=== PATIENT | female | born 1980 | race Caucasian/White ===

== ENCOUNTER 2023-12-01 16:41 | Emergency (ER) | payer OTHER, SELFPAY ==
--- NOTE | ~2023-12-01 | XR_ITS ---
EXAMINATION: XR LUMBOSACRAL SPINE CLINICAL INFORMATION: Fall with pain COMPARISON: None available. TECHNIQUE: Three views of the lumbosacral spine. FINDINGS: Degenerative changes are present spine from L1-L2 through S1. There is fixation with interbody devices at L3-L4 and L4-L5. 2 mild scoliosis convex to the right. No acute exercise are seen with certainty. XR/XR lumbar spine 2-3V IMPRESSION: Degenerative changes and postoperative changes as described above. No acute finding.
--- NOTE | ~2023-12-01 | CT_ITS ---
EXAMINATION: CT ABDOMEN AND PELVIS WITHOUT CONTRAST CLINICAL INFORMATION: Abdominal and back pain COMPARISON: None available. TECHNIQUE: Multidetector volumetric imaging was performed from the superior aspect of the liver through the pubic symphysis. Sagittal and coronal reformatted images were obtained on the technologist's workstation. This CT examination was performed using dose optimization techniques as appropriate, variously including the following: *Automated exposure control *Adjustment of mA and/or kV according to patient size (this includes techniques or standardized protocols for targeted exams where dose is matched to indication/reason for exam; i.e. extremities or head) *Use of iterative reconstruction technique DLP: 370 mGy-cm FINDINGS: LUNG BASES: The visualized lung bases are unremarkable. LIVER, GALLBLADDER, AND BILIARY TREE: The liver is normal in size, shape, and attenuation. No focal hepatic lesion or biliary ductal dilatation is present. The gallbladder is unremarkable with no evidence of radiopaque gallstones, gallbladder wall thickening, or obvious pericholecystic inflammatory changes. PANCREAS: Unremarkable. SPLEEN: Unremarkable. ADRENAL GLANDS: Unremarkable. KIDNEYS AND URETERS: The kidneys are normal in size, shape, and attenuation. There is a 2 mm nonobstructing calculus seen in the mid left kidney. No other calculi are seen. Mild fullness in both renal collecting systems without as well as the proximal ureters but there is no gross hydronephrosis or hydroureter seen. No perinephric stranding. A benign right-sided 0.8 cm Bosniak class I renal cyst is noted which requires no additional imaging or follow up. No solid renal masses are seen. BLADDER: Unremarkable. GASTROINTESTINAL TRACT: The small and large bowel are unremarkable. The appendix is unremarkable. ABDOMINAL WALL: No significant hernia is appreciated. Some surgical clips are present around the left rectus muscle. LYMPH NODES: No retroperitoneal lymphadenopathy but evaluation is limited because of lack of oral and IV contrast VASCULAR: Unremarkable. PELVIC VISCERA: The uterus and adnexa are unremarkable. OSSEOUS STRUCTURES: Degenerative changes are present in the spine with biconvex thoracolumbar scoliosis. There is fusion with interbody devices at L4-L5 and L5-S1. No bony destructive lesions or acute fractures are seen. CT/CT abdomen pelvis wo IV con IMPRESSION: 1. A cause for the patient's abdominal and back pain has not been found. 2. Incidental note made of a 2 mm nonobstructing left renal calculus, degenerative changes in the spine with biconvex scoliosis and fusion L4-S1. Fleischner guidelines were followed.
[2023-12-01 16:47] VITALS: BP 152/105; PULSE 97; RESP 20; TEMP 37.2; O2SAT 98; BMI 22.9
--- NOTE | 2023-12-01 16:55 | ED.FALL ---
HPI - Fall General Chief Complaint: Fall Stated Complaint: ?Kidney infection Time Seen by Provider: 12/01/23 19:28 Source: patient Mode of arrival: ambulatory Limitations: no limitations History of Present Illness ED Provider: Rosalinda Renee HPI Narrative: This is a 43-year-old female with history of lumbar fusion, chronic back pain, spinal stimulator who presents to the ER with multiple complaints. Patient reports on Sunday she had a mechanical fall landing on her buttocks. No head strike or LOC. She reports increased lower back pain since then. She reports since yesterday she has had pain which radiates to her left abdomen with dysuria. She has also had some nausea and vomit. her last menstrual cycle was 1 week ago. she does not have any concern for . she denies any numbness in the groin. Denies any bowel or bladder incontinence. No diarrhea or constipation. No urinary retention. No radiation of pain into the legs. No numbness or tingling in the legs. Patient arrived ambulatory. Denies history of IVDA, no weight loss/night sweats. Related Data Previous Rx's ?Medication ?Instructions ?Recorded ibuprofen 600 mg tablet 600 mg PO Q6H PRN pain #30 tabs 12/01/23 levofloxacin 750 mg tablet 750 mg PO DAILY 7 days #7 tabs 12/01/23 lidocaine 5 % topical patch 1 patch topical DAILY #15 ea 12/01/23 (Lidoderm) ondansetron 4 mg disintegrating 4 mg PO Q6H PRN nausea and 12/01/23 tablet vomiting #10 tabs phenazopyridine 200 mg tablet 200 mg PO TID PRN pain 6 doses #6 12/01/23 (Pyridium) tabs Allergies Allergy/AdvReac Type Severity Reaction Status Date / Time No Known Allergies Allergy Verified 12/01/23 16:50 [No Known Allergies*] Review of Systems Review of Systems: Yes all other systems are reviewed and are negative Constitutional: Constitutional: Reports no additional constitutional complaints, Denies body ache(s), Denies chills, Denies fever(s), Denies headache(s), Denies night sweats, Denies weakness and Denies weight loss Eyes: Eyes: Reports no additional eye complaints and Denies change in vision ENT: Reports system reviewed and no additional complaints, except as documented, Denies dizziness, Denies headache(s), Denies nasal congestion, Denies nasal discharge and Denies neck pain Cardiovascular: Cardiovascular: Reports no additional cardiovascular complaints, Denies chest pain, Denies leg edema and Denies dyspnea Respiratory: Respiratory: Reports no additional respiratory complaints, Denies cough and Denies dyspnea Gastrointestinal: Gastrointestinal: Reports no additional gastrointestinal complaints, Reports abdominal pain, Denies diarrhea, Reports nausea and Reports vomiting Genitourinary: Genitourinary: Reports no additional female genitourinary complaints, Denies hematuria, Reports dysuria, Denies flank pain, Denies urinary incontinence, Denies urinary hesitancy and Denies urinary urgency Musculoskeletal: Musculoskeletal: Reports no additional musculoskeletal complaints, Reports back pain, Denies arthralgias, Denies joint swelling, Denies neck pain, Denies numbness and Denies tingling Integumentary/Breasts: Skin/Breast: Reports system reviewed and no additional complaints, except as docu and Denies rash Neurologic: Reports system reviewed and no additional complaints, except as documented, Denies Abnormal speech present, Denies dizziness, Denies headache(s), Denies numbness, Denies tingling and Denies weakness [facility] Past Medical History Attestation statement: The following information was validated with the patient. Source: old records reviewed and nursing notes reviewed Social History Social History Advance Directives: No Advance Directives Information Provided: No Do you have a plan to hurt others: No Plan Physical Exam Vital Signs: Vital Signs: Last Vital Signs Temp 98.5 F 12/01/23 22:24 Pulse 82 12/01/23 22:24 Resp 16 12/01/23 22:24 BP 132/100 H 12/01/23 22:24 Pulse Ox 98 12/01/23 22:24 O2 Del Method Room Air 12/01/23 22:24 BMI result Body Mass Index 22.9 Const: General: cooperative, healthy appearing, comfortable and no acute distress Orientation/consciousness: patient oriented x3 Limitations: no limitations HEENT: Head: Yes normal to inspection, No Day's sign and No raccoon eyes Ears: hearing grossly normal bilaterally and TM's normal bilaterally General nose exam: Normal external nose present Face and sinus: Yes normal facial exam Mouth: Normal oral and palatal mucosa present Throat: Yes posterior oropharynx normal Eyes: General: appearance normal, both eyes and all related structures Pupils: Equal, round and reactive pupils present Neck: Neck: Yes normal visual inspection, Yes full ROM, Yes no lymphadenopathy and Yes no meningeal signs Chest: Chest palpation & inspection: normal inspection of the chest Resp: Effort & Inspection: normal respiratory effort Auscultation: clear to auscultation bilaterally Cardio: Rate: regular rate Rhythm: regular rhythm Peripheral pulses: Peripheral pulses 2+ throughout GI: Inspection: Yes normal to inspection Palpation (GI): Soft to palpation, Tenderness to palpation present (GI) in the LLQ; with no rebound tenderness and no guarding Auscultation: normal bowel sounds : General: Yes no CVA tenderness Back/Spine/Pelvis: Other: TTP to bilateral lumbar/thoracic soft tissue with no midline tenderness, Step-offs or deformities. Pain is worsened with flexion extension of the lumbar spine. Back: no CVA tenderness Thoracic/Lumbar Spine: thoracic and lumbar spine normal to inspection Skin: General skin exam: no rashes or lesions noted Neuro: General: patient oriented x3, moves all extremities, no meningeal signs, no focal motor deficits and normal sensation to monofilament Cranial nerves: Yes CN's II-XII intact bilaterally, Yes Equal, round and reactive pupils present, Yes Bilaterally intact EOM present, Yes Nystagmus not present, Yes Normal facial strength present and Yes Midline tongue present Cognition (Neuro): normal cognition Speech: No Abnormal speech present Gait exam (Neuro): Normal gait present Motor exam (neuro): 5/5 motor strength present throughout Sensory Exam: Normal double simultaneous stimulation for sensation Deep tendon reflexes (DTR's): Right patellar reflex intensity grade: 2+ and Left patellar reflex intensity grade: 2+ Extrem: General: Yes normal to inspection Course Course Course Narrative: This is a rapid medical exam. Deferred additional HPI, ROS, PE to primary provider. 43 yo female with history of chronic pain had mechanicall fall Sunday hitting lower back now with severe lower back pain, vomiting, and dysuria. Will obtain labs, UA, x-ray AJITHS -Melina Renee APRN Reevaluation(s) Reevaluation #1: 2030-Labs are normal. UA c/w with UTI. Antibiotic ordered. CT pending. Sign out to [employer] pending CT imaging. Reevaluation #2: Patient received in sign-out at change of shift pending CT scan which does not show any acute findings. Patient be treated clinically for pyelonephritis. Time: 22:45 Medications Administered Discontinued Medications Generic Name Dose Route Start Last Admin Trade Name Rigo PRN Reason Stop Dose Admin Ketorolac Tromethamine 30 mg 12/01/23 20:12 12/01/23 20:20 Ketorolac Tromethamine 30 Mg/Ml Vial IM 12/01/23 20:13 30 mg ONCE ONE Administration Levofloxacin 750 mg 12/01/23 20:32 12/01/23 20:39 Levofloxacin 750 Mg Tablet PO 12/01/23 20:33 750 mg ONCE ONE Administration Medical Decision Making Medical Decision Making [facility] Narrative: This is a 43-year-old female with history of lumbar fusion, chronic back pain, spinal stimulator who presents to the ER with multiple complaints. Patient reports on Sunday she had a mechanical fall landing on her buttocks. No head strike or LOC. She reports increased lower back pain since then. She reports since yesterday she has had pain which radiates to her left abdomen with dysuria. She has also had some nausea and vomit. her last menstrual cycle was 1 week ago. she does not have any concern for . she denies any numbness in the groin. Denies any bowel or bladder incontinence. No diarrhea or constipation. No urinary retention. No radiation of pain into the legs. No numbness or tingling in the legs. Patient arrived ambulatory. On exam patient has TTP to bilateral lumbar/thoracic soft tissue as well as her LLQ with no rebound or guarding. No midline lumbar tenderness/step offs or deformities. Normal neuro exam with no deficits or red flag symptoms. Will obtain labs, UA, urine preg, CT X-rays reviewed from triage with no acute finding will provide analgesia Differential Diagnosis Differential Diagnoses: The differential diagnosis associated with the presentation includes lumbar strain vs contusion pyelo, renal colic, divert low suspicion for AAA, ACS, fracture, cord compression/caude equina, epidural abscess/hematoma, malignancy Admission/Observation Consideration of admission/observation: Escalation of care including admission/observation considered see discussion in course Lab Data [facility] Lab Attestation statement: I reviewed the patient's lab results. 12/01/23 17:30 12/01/23 17:30 Labs: Lab Results 12/01/23 12/01/23 Range/Units 17:30 20:13 WBC 10.8 (4.8-10.8) X10*3/uL RBC 4.55 (4.20-5.50) X10*6/uL Hgb 12.9 (12.0-16.0) g/dl Hct 38.8 (37.0-47.0) % MCV 85.3 (80.0-98.0) fL MCH 28.4 (27.0-33.0) pg MCHC 33.2 (31.0-35.0) g/dl RDW 12.8 (11.0-16.0) % Plt Count 303 (160-400) X10*3/uL MPV 9.2 L (9.4-12.3) fL Immature Gran % (Auto) 0.3 (0.0-0.4) % Neut % (Auto) 77.0 H (45-73) % Lymph % (Auto) 14.1 L (20-40) % [place] % (Auto) 6.7 (2-11) % Eos % (Auto) 1.2 (0-4) % Baso % (Auto) 0.7 (0-2) % Lymph # (Auto) 1.5 (1.2-4.9) X10*3/uL [place] # (Auto) 0.7 (0.1-1.2) X10*3/uL Eos # (Auto) 0.1 (0.0-0.4) X10*3/uL Baso # (Auto) 0.1 (0.0-0.2) X10*3/uL Abs Immat Gran (auto) 0.03 (0.00-0.03) X10*3/uL Absolute Neuts (auto) 8.3 (2.0-8.3) x10*3/uL Absolute Nucleated RBC 0.000 (0.0-0.012) X10*3/uL Nucleated RBC % (auto) 0.0 (0.0-0.2) /100WBC Sodium 137 (135-145) mmol/L Potassium 3.6 (3.3-5.1) mmol/L Chloride 99 (96-108) mmol/L Carbon Dioxide 25 (22-29) mmol/L Anion Gap 17 (12-20) BUN 7 L (9-16) mg/dL Creatinine 0.77 (0.5-1.4) mg/dL Estim Creat Clear Calc 73.7 Estimated GFR > 60 Random Glucose 67 (60-115) mg/dL Calcium 9.6 (8.4-10.2) mg/dL Total Bilirubin 0.5 (0.0-1.0) mg/dL AST 26 (5-31) U/L ALT 24 (0-31) U/L Alkaline Phosphatase 83 (39-117) U/L Total Protein 8.4 H (6.5-8.0) g/dL Albumin 4.6 (3.5-5.0) g/dL Urine Color Yellow Urine Appearance Hazy Urine pH 7.0 (5.0-9.0) Ur Specific [place] 1.015 (1.005-1.025) Urine Protein 30 (1+) H (Neg-Trace) mg/dL Urine Glucose (UA) Negative (Negative) mg/dL Urine Ketones Negative (Negative) mg/dL Urine Blood Moderate (2+) H (Negative) Urine Nitrite Positive H (Negative) Ur Leukocyte Esterase Moderate (2+) H (Negative) Urine RBC >20 H (0-2) /HPF Urine WBC >50 H (0-5) /HPF Ur Squamous Epith Cells 0-2 (0-2) /HPF Urine Bacteria 3+ (None Seen) Hyaline Casts 0-2 (0-2) /LPF Urine Test NEGATIVE (NEGATIVE) Independent Interpretation I performed an independent interpretation of an: Plain X-Ray and CT Scan Interpretation: I independently viewed the x-ray and agree with the radiology report Radiology Impression Discussion of test interpretation with radiology: I have reviewed the radiologist's reading. Radiologist Impression: Launch?Image [place] [id number] XRay Report Signed Patient: Ellen Flores MR#: [id number] : 1980 Acct:[id number] Age/Sex: 43 / F ADM Date: 12/01/23 Loc: .ED Attending Dr: Ordering Physician: Rosalinda Stover NP Date of Service: 12/01/23 Procedure(s): XR lumbar spine 2-3V Accession Number(s): [id number] cc: Rosina Medina LOADER HELPER; Rosalinda Stover NP~ EXAMINATION: XR LUMBOSACRAL SPINE CLINICAL INFORMATION: Fall with pain COMPARISON: None available. TECHNIQUE: Three views of the lumbosacral spine. FINDINGS: Degenerative changes are present spine from L1-L2 through S1. There is fixation with interbody devices at L3-L4 and L4-L5. 2 mild scoliosis convex to the right. No acute exercise are seen with certainty. XR/XR lumbar spine 2-3V IMPRESSION: Degenerative changes and postoperative changes as described above. No acute finding. Prescription Management I considered prescription management with: Pain Medication Discharge Plan Discharge Clinical Impression: Pyelonephritis Patient Disposition: Home, Self-Care Instructions: Kidney Infection (ED) Additional Instructions: Take your medication as prescribed. Take it with food. Return for worsening symptoms Increase fluids at home. Prescriptions: New levofloxacin 750 mg tablet 750 mg PO DAILY 7 Days Qty: 7 0RF ondansetron 4 mg tablet,disintegrating 4 mg PO Q6H PRN (Reason: nausea and vomiting) Qty: 10 0RF lidocaine [Lidoderm] 5 % adhesive patch,medicated 1 patch topical DAILY Qty: 15 0RF Rx Instructions: leave on most painful area for up to 12 hrs ibuprofen 600 mg tablet 600 mg PO Q6H PRN (Reason: pain) Qty: 30 0RF phenazopyridine [Pyridium] 200 mg tablet 200 mg PO TID PRN (Reason: pain) Qty: 6 0RF Referrals: Rosina Medina, SANIYA [Primary Care Provider] - 1 week Stand Alone Forms: Work/School Release Print Language: Japanese
[2023-12-01 18:11] LABS: MANUAL DIFF FLAG NO
[2023-12-01 18:12] LABS: Basophils Absolute Auto 0.1 X10*3/uL (0.0-0.2); Basophils Percent Auto 0.7 % (0-2); Eosinophils Absolute Auto 0.1 X10*3/uL (0.0-0.4); Eosinophils Percent Auto 1.2 % (0-4); Hematocrit 38.8 % (37.0-47.0); Hemoglobin 12.9 g/dl (12.0-16.0); Imm Gran Abs Auto 0.03 X10*3/uL (0.00-0.03); Imm Gran Pct Auto 0.3 % (0.0-0.4); Lymphocytes Absolute Auto 1.5 X10*3/uL (1.2-4.9); Lymphocytes Percent Auto 14.1 % (20-40); Mean Corpuscular HGB Conc 33.2 g/dl (31.0-35.0); Mean Corpuscular Hemoglobin 28.4 pg (27.0-33.0); Mean Corpuscular Volume 85.3 fL (80.0-98.0); Mean Platelet Volume 9.2 fL (9.4-12.3); Monocytes Absolute Auto 0.7 X10*3/uL (0.1-1.2); Monocytes Percent Auto 6.7 % (2-11); Neutrophils Absolute Auto 8.3 x10*3/uL (2.0-8.3); Platelet Count 303 X10*3/uL (160-400); Red Blood Count 4.55 X10*6/uL (4.20-5.50); Red Cell Distribution Width 12.8 % (11.0-16.0); White Blood Count 10.8 X10*3/uL (4.8-10.8)
[2023-12-01 18:31] LABS: Alanine Aminotransferase 24 U/L (0-31); Albumin Level 4.6 g/dL (3.5-5.0); Alkaline Phosphatase 83 U/L (39-117); Anion Gap 17 (12-20); Aspartate Amino Transferase 26 U/L (5-31); Bilirubin Total 0.5 mg/dL (0.0-1.0); Blood Urea Nitrogen 7 mg/dL (9-16); Calcium 9.6 mg/dL (8.4-10.2); Carbon Dioxide 25 mmol/L (22-29); Chloride 99 mmol/L (96-108); Creatinine Clr Calc Pharmacy 73.7; Estimated Glomerular Filt Rate > 60; Glucose Random 67 mg/dL (60-115); Potassium 3.6 mmol/L (3.3-5.1); Sodium 137 mmol/L (135-145); Total Protein 8.4 g/dL (6.5-8.0)
[2023-12-01 20:12] VITALS: BP 129/87; PULSE 73; RESP 18; TEMP 37; O2SAT 100
[2023-12-01] MEDS: Ketorolac Tromethamine 30 MG/ML VIAL IM (20:20)
[2023-12-01 20:23] LABS: Appearance Urine Hazy; Color Urine Yellow; Glucose Urine UA Negative (Negative); Leukocyte Esterase Urine Moderate (2+) (Negative); Nitrite Urine Positive (Negative); Specific Gravity - Urine 1.015 (1.005-1.025); UMIC TRIGGER UACC YES; Urine Blood Moderate (2+) (Negative); Urine Ketones Negative (Negative); Urine Protein 30 (1+) mg/dL (Neg-Trace)
[2023-12-01 20:24] LABS: UPreg QC Valid YES; Urine Pregnancy NEGATIVE (NEGATIVE)
[2023-12-01 20:27] LABS: Bacteria Urine 3+ (None Seen); Hyaline Casts Urine 0-2 /LPF (0-2); RBC Urine >20 /HPF (0-2); Squamous Epithelial Cell Urine 0-2 /HPF (0-2); UACC Culture Trigger YES; WBC Urine >50 /HPF (0-5)
[2023-12-01] MEDS: levoFLOXacin 750 MG TABLET PO (20:39)
[2023-12-01 22:24] VITALS: BP 132/100; PULSE 82; RESP 16; TEMP 36.9; O2SAT 98
[2023-12-01] MEDS: Ondansetron ODT 4 MG TAB.RAPDIS TRANSLINGU (23:31)
[2023-12-01 23:33] VITALS: BP 132/100; PULSE 82; RESP 16; TEMP 36.9; O2SAT 98
== END 2023-12-01 23:34 | disposition home or self-care (01) ==
PROVIDERS: Nurse Practitioner Family; Emergency Provider Internal Medicine; PCP Nurse Practitioner Family
DX: N12 Tubulo-interstitial nephritis, not specified as acute or chronic (principal); M54.50 Low back pain, unspecified; R30.0 Dysuria; R10.32 Left lower quadrant pain; R11.2 Nausea with vomiting, unspecified; Z91.81 History of falling
CPT/HCPCS: 36415; 72100; 74176; 80053; 81001; 81025; 85025; 87086; 87088; 87186; 96372; 99283; 99284; J1885

== ENCOUNTER 2024-06-30 18:26 | Emergency (ER) | payer OTHER, SELFPAY ==
--- NOTE | ~2024-06-30 | XR_ITS ---
EXAMINATION: XR LUMBOSACRAL SPINE CLINICAL INFORMATION: lower back pain COMPARISON: Lumbar spine December 01, 2023 TECHNIQUE: Two views of the lumbosacral spine. FINDINGS: Lumbar disc cages at L4-L5 and L5-S1. Surgical clips anterior to lower lumbar spine. Degenerative disc height narrowing L3-L4. No acute fracture. No focal bone lesion. Mild degenerative changes inferior sacroiliac joints bilaterally. XR/XR lumbar spine 2-3V IMPRESSION: 1. No acute abnormality. 2. Lumbar disc cages at L4-L5 and L5-S1. 3. Degenerative disc height narrowing L3-L4. Electronically signed by: Jan Goodman MD 06/30/2024 09:57 PM EST RP
[2024-06-30 18:32] VITALS: BP 156/110; PULSE 114; RESP 16; TEMP 36.2; O2SAT 98; BMI 23.2
--- NOTE | 2024-06-30 18:41 | ED.BACK ---
HPI - Back Pain/Injury General Chief Complaint: Back Pain/Injury Stated Complaint: back pain Time Seen by Provider: 06/30/24 21:32 Source: patient Limitations: no limitations History of Present Illness ED Provider: Pamela angeles PA-C HPI Narrative: 43-year-old female with a history of chronic back pain presents with back pain x2 weeks. Patient states she lifted her grandson, then developed acute low back pain. The pain is currently radiating down her right lower extremity. Associated paresthesia. Denies weakness of lower extremity, urinary retention or bowel incontinence. Related Data Previous Rx's ?Medication ?Instructions ?Recorded ibuprofen 600 mg tablet 600 mg PO Q6H PRN pain #30 tabs 12/01/23 levofloxacin 750 mg tablet 750 mg PO DAILY 7 days #7 tabs 12/01/23 lidocaine 5 % topical patch 1 patch topical DAILY #15 ea 12/01/23 (Lidoderm) ondansetron 4 mg disintegrating 4 mg PO Q6H PRN nausea and 12/01/23 tablet vomiting #10 tabs phenazopyridine 200 mg tablet 200 mg PO TID PRN pain 6 doses #6 12/01/23 (Pyridium) tabs methocarbamol 750 mg tablet 750 mg PO TID PRN pain #14 tabs 06/30/24 methylprednisolone 4 mg tablets in 4 mg PO QAM #1 ea 06/30/24 a dose pack (Medrol (Italo)) Allergies Allergy/AdvReac Type Severity Reaction Status Date / Time No Known Allergies Allergy Verified 06/30/24 18:39 [No Known Allergies*] Review of Systems Review of Systems: Yes all other systems are reviewed and are negative Constitutional: Constitutional: Denies fatigue and Denies fever(s) Cardiovascular: Cardiovascular: Denies chest pain and Denies dyspnea Respiratory: Respiratory: Denies dyspnea Gastrointestinal: Gastrointestinal: Denies abdominal pain and Denies nausea Musculoskeletal: Musculoskeletal: Reports back pain, Denies muscle weakness, Denies numbness and Reports tingling Neurologic: Denies numbness and Reports tingling Endocrine: Endocrine: Denies fatigue PMF Past Medical History Attestation statement: The following information was validated with the patient. Social History Social History Smoked in Last 30 Days: No Use of substances other than those prescribed or required for medical reasons: No Advance Directives: No Advance Directives Information Provided: No Do you have a plan to hurt others: No Plan Patient : No Physical Exam Vital Signs: Vital Signs: Last Vital Signs Temp 97.2 F 06/30/24 18:32 Pulse 114 H 06/30/24 18:32 Resp 16 06/30/24 18:32 BP 156/110 H 06/30/24 18:32 Pulse Ox 98 06/30/24 18:32 O2 Del Method Room Air 06/30/24 18:32 BMI result Body Mass Index 23.2 Const: Other: Alert, appears older than stated age Orientation/consciousness: patient oriented x3 Resp: Other: Nonlabored respirations Cardio: Other: Normal peripheral perfusion Skin: Other: Warm dry no rash Neuro: General: patient oriented x3, gait normal, no focal motor deficits and CN's II-XI intact bilaterally Psych: Other: Cooperative Course Course Course Narrative: This is an RME done by [facility]: Additional HPI, ROS, PE not included below will be deferred to primary provider. 43 yo f presents w/ acute on chronic back pain worsening over the past few days. Reports interfeering w/ adls denies red flags sx. PE ambulatory into triage Medical Decision Making Medical Decision Making MDM Narrative: 43-year-old female with a history of chronic back pain presents with back pain x2 weeks. Patient states she lifted her grandson, then developed acute low back pain. The pain is currently radiating down her right lower extremity. Associated paresthesia. Denies weakness of lower extremity, urinary retention or bowel incontinence. Problem: Chronic back pain History: Per patient I have considered the following differential diagnoses: Lumbar strain, radiculopathy, sciatica, cauda equina Plan: Patient is having symptoms of sciatica without red flag signs symptoms concerning for cord compression. We will send with a steroid taper and a muscle relaxant. Imaging was ordered from triage, she have degenerative changes, no other acute process going on at this time. I have independently reviewed the following tests: X-ray lumbar spine: XR/XR lumbar spine 2-3V IMPRESSION: 1. No acute abnormality. 2. Lumbar disc cages at L4-L5 and L5-S1. 3. Degenerative disc height narrowing L3-L4. Discharge Plan Discharge Clinical Impression: Lumbar radiculopathy Patient Disposition: Home, Self-Care Instructions: Lumbar Radiculopathy (ED) Additional Instructions: Your discomfort is consistent with lumbar radiculopathy/sciatica. See home care instructions. Use the Medrol Dosepak, this is a steroid taper, take it in the morning. This is an anti-inflammatory. Use the methocarbamol, this is a muscle relaxant, as needed for pain. To know it may cause drowsiness, do not drive or operate machinery while taking the medication. During the day, in between the doses of the methocarbamol, you can concurrently take 600 mg of ibuprofen taken every 6 hours with food, along with [id number] Tylenol 1000 mg taken every 8 hours. These are the appropriate doses of ibuprofen and Tylenol for pain. Follow up with your primary care provider as needed. Prescriptions: New methocarbamol 750 mg tablet 750 mg PO TID PRN (Reason: pain) Qty: 14 0RF methylprednisolone [Medrol (Italo)] 4 mg tablets,dose pack 4 mg PO QAM Qty: 1 0RF Rx Instructions: Take per package instructions No Action levofloxacin 750 mg tablet 750 mg PO DAILY 7 Days Qty: 7 0RF ondansetron 4 mg tablet,disintegrating 4 mg PO Q6H PRN (Reason: nausea and vomiting) Qty: 10 0RF lidocaine [Lidoderm] 5 % adhesive patch,medicated 1 patch topical DAILY Qty: 15 0RF Rx Instructions: leave on most painful area for up to 12 hrs ibuprofen 600 mg tablet 600 mg PO Q6H PRN (Reason: pain) Qty: 30 0RF phenazopyridine [Pyridium] 200 mg tablet 200 mg PO TID PRN (Reason: pain) Qty: 6 0RF Print Language: Haitian
--- NOTE | 2024-06-30 19:57 | PC.NURSE ---
pt from home, a&ox4, respirations even and unlabored. pt reports she has had chronic back pain x3 years, pt reports today it has increased, radiating down bilateral legs and making it hard for her to walk. pt ambulatory out of wheelchair with cane into bed.
[2024-06-30] MEDS: methocarbamoL 750 MG TABLET PO (22:32)
[2024-06-30 22:35] VITALS: BP 128/102; PULSE 73; RESP 16; TEMP 36.3; O2SAT 99
[2024-06-30 22:36] VITALS: BP 128/102; PULSE 73; RESP 16; TEMP 36.3; O2SAT 99
== END 2024-06-30 22:51 | disposition home or self-care (01) ==
PROVIDERS: Emergency Provider Emergency Medicine; PCP Nurse Practitioner Family
DX: M54.16 Radiculopathy, lumbar region (principal)
CPT/HCPCS: 72100; 99283; 99284

== ENCOUNTER 2024-07-28 14:22 | Outpatient (REF) | payer OTHER, SELFPAY ==
[2024-07-28 14:52] LABS: Amphetamine Screen Urine Not Detected (Not Detect); Barbiturates, Urine Not Detected (Not Detect); Benzodiazepines Screen Urine Not Detected (Not Detect); Cannabinoid Screen Urine POSITIVE (Not Detect); Cocaine Screen Urine Not Detected (Not Detect); Fentanyl, urine Not Detected (Not Detect); Methadone Screen, Urine Positive (Not Detect); Opiate Screen Urine Not Detected (Not Detect); Phencyclidine Screen Urine Not Detected (Not Detect)
== END 2024-07-28 14:23 | disposition home or self-care (01) ==
LOC: HO.LNP 14:22
PROVIDERS: Visit Provider Psychiatry & Neurology Psychiatry
DX: F33.1 Major depressive disorder, recurrent, moderate (principal); F11.21 Opioid dependence, in remission; F41.1 Generalized anxiety disorder
CPT/HCPCS: 80307

== ENCOUNTER → 2024-08-06 11:00 | Outpatient (BNV) | payer OTHER, SELFPAY | PROVIDERS: Visit Provider Psychiatry & Neurology Psychiatry | DX: F33.1 Major depressive disorder, recurrent, moderate (principal); F11.20 Opioid dependence, uncomplicated; F41.1 Generalized anxiety disorder; F45.42 Pain disorder with related psychological factors | CPT/HCPCS: 90792 ==

== ENCOUNTER 2024-08-07 11:00 | Outpatient (RCR) | payer OTHER, SELFPAY ==
[2024-07-25 09:48] VITALS: BP 128/80; PULSE 72; TEMP 37.2
[2024-07-25 09:50] VITALS: BMI 21.4
--- NOTE | 2024-07-25 14:26 | PC.ADMIT ---
Patient is a 43 year old single female who self referred to [facility] d/t sxs of depression, sleep problems, and anxiety. Patient has a history of Opiate addiction. She reports last use was 8 years ago. She is currently on MAT with Methadone taking 85 mg in the am and 65 mg in the evening which was confirmed by [facility] methadone clinic. Patient stated when her back pain is bad she has cravings as she does not want to feel pain. Patient reports her doctor put in a referral to a pain clinic and she plans on attending when she discharges from the program. Patient reports she tries to attend AA meetings once a week. Would like to attend substance groups while at [facility] form more support. Patient stated she was at [facility] in the middle of June to the end of June 2024 d/t depression and anxiety. Patient stated she was here at [facility] many years ago and stated [facility] was helpful. Patient identified supports being her sister, counselor at [facility]. Patient is alert and oriented x4 Calm and cooperative. She presented with depressed mood and anxious affect. She looks much older than her stated age. She denied SI, no HI. She was calm and pleasant. Help seeking. She was given a copy of her safety plan if needed. Medications reconciled with patient and patient's phamacy. She reports she takes her medications as prescribed with the exception of this morning as she forgot to take them as she was in a jane to get to the program. She also stated she stopped taking Seroquel that was prescribed to her at the [facility] she was staying at as she did not like the way it made her feel.
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
--- NOTE | 2024-08-04 10:27 | HO.PHP ---
PHP Admin, Lashell, informed the team that Ellen is out sick today. Ellen reported no safety concerns to Lashell and will be in attendance to program tomorrow.
--- NOTE | 2024-08-07 22:22 | HO.PHPPROGNO ---
Subjective Subjective Date of Service: 08/07/24 Reason For Visit: depression,MERT Interim History: Patient seen for follow-up, anticipating discharge at the end of program today.? It's been good, seems to help . Discusses getting a back brace from her doctor.. Reports no other acute issues or concerns. Medication compliant, medications well-tolerated. Denies any adverse effects.? Mood is stable.? Denies any hopelessness or SI. Denies thoughts of harming self or others at this time. Denies any aggressive ideation or HI. Denies any paranoia or AH or VH. Sleep, appetite, energy stable. Medication Compliance: Yes Side effects from medications: No Attending Groups: Yes Review of Systems Acute medical concerns: No Mental Status Exam Mental Status Exam Narrative: Alert, oriented, in no acute distress. Calm, cooperative. Mood stable, affect appropriate. Speech normal. Thought process linear, coherent, more goal-directed. Thought content related to stressors, future-oriented, denies any helplessness, hopelessness or SI.? No aggressive ideation or HI. No paranoia or delusional content elicited. No evidence of psychosis. Insight and judgment fair-good. Diagnostics Vital Signs (24Hr): BMI result Body Mass Index 21.4 Assessment & Plan Assessment & Plan (1) MDD (major depressive disorder), recurrent episode, moderate: Status: Acute Code(s): F33.1 - Major depressive disorder, recurrent, moderate (2) Opioid dependence on maintenance agonist therapy, no symptoms: Status: Acute Code(s): F11.20 - Opioid dependence, uncomplicated (3) MARCOS (generalized anxiety disorder): Status: Acute Code(s): F41.1 - Generalized anxiety disorder (4) Pain disorder associated with psychological factors and medical condition: Status: Acute Code(s): F45.42 - Pain disorder with related psychological factors Plan Discharge from [facility] continue mirtazapine 30 mg qhs continue gabapentin 1200 mg/d (split 300/300/600 mg HS) switch from XL to Wellbutrin SR 200 mg qam for 2-3 days, 300 mg qam (to better target ADHD sx) patient was previously on WB SR continue melatonin 3 mg qhs prn continue other regular medications?- celecoxib, clonazepam prn, hydroxyzine prn Patient is on methadone 150 mg/d through [facility] Methadone Clinic Will defer further medications management to outpatient provider Patient educated on: diagnosis and medication risk/benefits Informed Consent: understands Reason for contiued partial hosp. stay Substantial Risk for: stable for discharge Certification I certify that partial hospital treatment is medically necessary due to the symptoms and problems resulting from the patient's mental illness and the failure to treat the patient at the partial hospital level of care would likely result in the patient requiring inpatient psychiatric care which could not be prevented at a less intensive level of care. Total time managing care of this patient today _30___ minutes. Discharge Plan Discharge Attending provider: Alondra Burciaga Medications: New bupropion HCl 100 mg tablet sustained-release 12 hr See Rx Instructions .ROUTE .COMPLEX Qty: 30 0RF Rx Instructions: take 2 tqblets po daily in AM and take 1 tablet po daily at lunch time, as directed gabapentin 300 mg capsule See Rx Instructions .ROUTE .COMPLEX Qty: 120 0RF Rx Instructions: take 1 capsule po daily in AM, 1 capsule po daily in afternoon and 2 capsules po daily at bedtime mirtazapine 30 mg tablet 30 mg PO BEDTIME Qty: 30 0RF Continued clonazepam 1 mg tablet 1 mg PO TID PRN (Reason: Anxiety) Patient Comments: Patient stated she takes as needed. Rx Instructions: Last filled 07/03/24. #19. methadone [Methadone Intensol] 10 mg/mL Concentrate See Rx Instructions .ROUTE .COMPLEX Rx Instructions: Takes 85 mg in the am and 65 mg in the evening. hydroxyzine HCl 25 mg Tablet 25 - 50 mg PO TID PRN (Reason: Anxiety) celecoxib 200 mg Capsule 200 mg PO BID Rx Instructions: Take with meals. Discontinued bupropion HCl [Wellbutrin XL] 300 mg Tablet Extended Release 24 Hr 300 mg PO DAILY Patient Comments: Last filled 06/26/24. mirtazapine [Remeron] 15 mg Tablet 15 mg PO BEDTIME Rx Instructions: Last filled 06/26/24. # 30 gabapentin 300 mg Tablet 300 mg PO TID Rx Instructions: Last filled 06/26/24 #30. Patient Education: Depression (DC), Anxiety (ED) Print Language: Lao
== END 2024-08-07 23:59 | disposition home or self-care (01) ==
LOC: HO.PHPA 11:00
PROVIDERS: Visit Provider Psychiatry & Neurology Psychiatry
DX: F33.1 Major depressive disorder, recurrent, moderate (principal); F41.1 Generalized anxiety disorder; F45.42 Pain disorder with related psychological factors; F11.20 Opioid dependence, uncomplicated; Z79.899 Other long term (current) drug therapy
CPT/HCPCS: 90791; 90853

== ENCOUNTER 2024-08-25 11:08 | Outpatient (AMB) | payer OTHER, SELFPAY ==
[2024-08-25 11:17] VITALS: BP 148/90; PULSE 88; O2SAT 98; BMI 21.8
--- NOTE | 2024-08-25 11:17 | MHC.OFFVIS ---
Vital Signs 08/25/24 11:17 Height 5 ft 2 in Weight 119 lb BMI 21.8 BP 148/90 H Blood Pressure Location Lt brachial Position Sitting Pulse 88 Pulse Source Pulse Oximeter Pulse Oximetry (%) 98 Oxygen Delivery Method Room Air Intake Visit Reasons: Lumbar Radiculopathy Velvet Cutter Required: No Allergies No Known Allergies [No Known Allergies*] Allergy (Verified 08/25/24 11:18) Medication List - Last Reconciled 08/25/24 by Agnes Torres, REGULATORY INTERN bupropion HCl SR take 2 tqblets po daily in AM and take 1 tablet po daily at lunch time, as directed celecoxib 200 mg PO BID clonazepam 1 mg PO TID PRN gabapentin take 1 capsule po daily in AM, 1 capsule po daily in afternoon and 2 capsules po daily at bedtime hydroxyzine HCl 25 - 50 mg PO TID PRN methadone (Methadone Intensol) Takes 85 mg in the am and 65 mg in the evening. mirtazapine 30 mg PO BEDTIME HPI Comments Details: Sandra is very pleasant 43 years old female presents in my office with complains on pain in lower back with radiation to the left as well as into the right lower extremity, and also pain in between the shoulder blades intractable nature. She reports that flexing forward and flexing backwards bursa aggravate her pain. She also reports widespread severe spasticity in lower extremities. She can not sleep normally she can not do activities of daily living she can not take care of herself she can not function normally she is on permanent disability she has a opioid use disorder. She is currently on methadone 85 mg a.m. 65 mg p.m.. Those are exuberant doses of the opioids. She had multiple surgeries on her back 3 surgeries including Soso of spinal cord stimulator thoracic implantation of anterior fusion L4-5 S1 as well as removal of spinal cord stimulator. She had multiple images of the lumbar spine including MRI of the lumbar spine 5 years ago at [facility]. She has x-rays performed in [facility] and this x-rays are available for review. Physical therapy and chiropractic manipulations were tried by this patient numerous times last time more than 2 years ago she received multiple injections in lumbar spine in the past she does not know the nature of the injections. Her past medical history is significant for opioid use disorders. Surgical history is as above. She denies smoking cigarettes she denies drinking alcohol she drinks 3 cups of coffee a day she denies recreational drugs but she has opioid use disorder history of the past. 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 Patient Tobacco Use Status: Never used Tobacco Review of Systems Const All systems reviewed & are unremarkable except as noted in HPI and below ENT Reports Normal hearing present Neuro Reports Normal hearing present, Denies Abnormal speech present, Denies confusion and Denies Sensory deficit (Neuro) Psych Denies confusion Physical Exam Vital Signs: Last Vital Signs Pulse 88 08/25/24 11:17 BP 148/90 H 08/25/24 11:17 Pulse Ox 98 08/25/24 11:17 Oxygen Delivery Method Room Air 08/25/24 11:17 BMI result Body Mass Index 21.8 Const General: no acute distress; No confusion Orientation/consciousness: patient oriented x3 and No confusion Eyes General: appearance normal, both eyes and all related structures Pupils: Equal, round and reactive pupils present EOM: EOMs intact bilaterally Neck Neck: Yes full ROM Chest Chest palpation & inspection: normal inspection of the chest Resp Effort & Inspection: normal respiratory effort, able to speak in complete sentences, normal respiratory pattern, no audible wheezes and no cough Cardio Jugular venous distension: no JVD GI Inspection: Yes normal to inspection Back/Spine/Pelvis Other: There is anterior scar on the abdomen very well-healed history of fusion. There are scars on the back demonstrating neurosurgical replace spinal cord stimulator and the site of the removal of the device. Marco A test is positive bilaterally. Pelvic compression test is positive bilaterally. Pelvic distraction test is positive bilaterally. Thigh thrust test is positive bilaterally. Severe intractable tenderness on palpation in projection of approximately T9-T10-T11 vertebra. Neuro General: patient oriented x3, gait normal and No confusion Cranial nerves: Yes CN's II-XII intact bilaterally, Yes Equal, round and reactive pupils present, Yes Normal hearing present and Yes Ability to bilaterally elevate shoulders present Speech: No Abnormal speech present Gait exam (Neuro): Normal gait present Motor exam (neuro): 5/5 motor strength present throughout Sensory Exam: No Sensory deficit (Neuro) Extrem General: No pedal edema Psych Speech and movement: Normal speech and movement present Affect: normal affect Attitude: cooperative Thought process: Normal thought process present Thought content: Normal thought content present Insight: Good insight present (Psych) Judgement: Good judgement present (Psych) Assessment & Plan Assessment & Plan (1) Postlaminectomy syndrome of lumbosacral region: Code(s): M96.1 - Postlaminectomy syndrome, not elsewhere classified Category: Medical (2) Sacroiliitis: Code(s): M46.1 - Sacroiliitis, not elsewhere classified Category: Medical (3) Sacroiliac joint dysfunction of both sides: Code(s): M53.3 - Sacrococcygeal disorders, not elsewhere classified Category: Medical (4) Chronic pain syndrome: Code(s): G89.4 - Chronic pain syndrome Category: Medical (5) Opioid use disorder: Code(s): F11.90 - Opioid use, unspecified, uncomplicated Category: Medical (6) MARCOS (generalized anxiety disorder): Code(s): F41.1 - Generalized anxiety disorder Category: Medical (7) Opioid dependence on maintenance agonist therapy, no symptoms: Code(s): F11.20 - Opioid dependence, uncomplicated Category: Medical (8) MDD (major depressive disorder), recurrent episode, moderate: Code(s): F33.1 - Major depressive disorder, recurrent, moderate Category: Medical (9) Intractable back pain: Code(s): M54.9 - Dorsalgia, unspecified Category: Medical Plan This patient is unfortunately suffering from opioid use disorder therefore potential treatment of her pain with neuromodulation probably is limited by sprint PNS only. The other modalities such as spinal cord stimulator and pain pump would require psychological evaluation and it remains to be seen whether this patient can not past psychological evaluation. I will schedule her nevertheless psychological evaluation, she was told that she needs to bring the information from her psychologist and psychiatrist to [facility]. I will schedule her for diagnostic sacroiliac joint injection. I also can consider sprint PNS for thoracic spine application. I will not be doing diagnostic injections it might be technically difficult for this patient. She has intractable back pain and I will schedule her for sprint PNS right away. Coding Level of Care Code New Pt Level 3 (72537) Diagnoses Postlaminectomy syndrome of lumbosacral region M96.1 Sacroiliitis M46.1 Sacroiliac joint dysfunction of both sides M53.3 Chronic pain syndrome G89.4 Opioid use disorder F11.90 MARCOS (generalized anxiety disorder) F41.1 Opioid dependence on maintenance agonist therapy, no symptoms F11.20 MDD (major depressive disorder), recurrent episode, moderate F33.1 Intractable back pain M54.9
== END 2024-08-25 11:43 | disposition home or self-care (01) ==
PROVIDERS: PCP Nurse Practitioner Family; Visit Provider Anesthesiology
DX: M96.1 Postlaminectomy syndrome, not elsewhere classified (principal); M46.1 Sacroiliitis, not elsewhere classified; M53.3 Sacrococcygeal disorders, not elsewhere classified; G89.4 Chronic pain syndrome; F11.90 Opioid use, unspecified, uncomplicated; F41.1 Generalized anxiety disorder; F11.20 Opioid dependence, uncomplicated; F33.1 Major depressive disorder, recurrent, moderate; M54.9 Dorsalgia, unspecified
CPT/HCPCS: 99203

== ENCOUNTER → 2024-08-25 11:08 | Outpatient (BNVA) | payer OTHER, SELFPAY | PROVIDERS: PCP Nurse Practitioner Family; Visit Provider Anesthesiology | DX: M96.1 Postlaminectomy syndrome, not elsewhere classified (principal); M46.1 Sacroiliitis, not elsewhere classified; M53.3 Sacrococcygeal disorders, not elsewhere classified; M54.9 Dorsalgia, unspecified; G89.4 Chronic pain syndrome; F41.1 Generalized anxiety disorder; F11.20 Opioid dependence, uncomplicated; F33.1 Major depressive disorder, recurrent, moderate | CPT/HCPCS: 99202 ==

== ENCOUNTER 2025-05-25 16:06 | Emergency (ER) | payer OTHER, SELFPAY ==
--- NOTE | ~2025-05-25 | XR_ITS ---
CLINICAL HISTORY: trauma 3 view, pelvis and right hip Comparison: None provided Findings: Right hip joint space preserved. No fracture deformity of the pelvis or right hip. No disruption of the pelvic ring. Previous disc fusion at L4 through S1. The soft tissues are unremarkable. IMPRESSION: No acute findings. This document has been electronically signed by: Rasheed Garduno MD on 05/25/2025 21:26:21
--- NOTE | ~2025-05-25 | XR_ITS ---
CLINICAL HISTORY: trauma --- Additional Notes or Special Instructions: compression fx? 3 views lumbar spine Comparison: CR/SR - XR LUMBAR SPINE 2-3 VIEWS - 06/30/24 18:55 EST Findings: No loss of lumbar vertebral body heights. No acute fracture deformity seen. Interbody disc fusions at L4-5 and L5-S1. Multiple surgical clips anterior to the lower lumbar spine are present, similar to prior. Multilevel degenerative change of the lumbar spine. There is a mild S shaped scoliosis of the lumbar spine. Severe disc height loss at L3-4 is present, similar to prior. IMPRESSION: No acute fracture deformity identified. This document has been electronically signed by: Rasheed Garduno MD on 05/25/2025 21:26:35
[2025-05-25 16:19] VITALS: BP 149/84; PULSE 83; RESP 16; TEMP 36.6; O2SAT 98; BMI 22.4
--- NOTE | 2025-05-25 16:23 | ED_ITS ---
HPI - General Adult General Chief complaint: Back Pain/Injury Stated complaint: pain all over body, weakness Time Seen by Provider: 05/25/25 20:40 Source: patient Limitations: no limitations History of Present Illness ED Provider: Pamela Smith PA-C HPI narrative: 44-year-old female with a history of MS, fibromyalgia, chronic hip pain, chronic lumbar sacral pain, anxiety, depression, opiate use disorder, who was followed by pain management, presents with right lumbar pain of unclear duration. Patient complaining of right lumbar pain with radiation down right lower extremity. Patient states she has developed paresthesia of medial thigh. Patient also complains of right hip pain, she states she fell today, which has exacerbated her chronic back, pelvis and hip pain. Denies urinary retention or bowel incontinence, no new weakness of lower extremities. Patient states she has an appointment with pain management this week. Related Data Home Medications ?Medication ?Instructions ?Recorded ?Confirmed clonazepam 1 mg tablet 1 mg PO TID PRN Anxiety 07/1608/25/24 hydroxyzine HCl 25 mg tablet 25 - 50 mg PO TID PRN Anx iety 07/25/24 08/25/24 methadone 10 mg/mL oral See Rx Instructions .Route . COMPLEX 07/25/24 08/25/24 concentrate (Methadone Intensol) celecoxib 200 mg capsule 200 mg PO BID 08/05/2408/25 Previous Rx's ?Medication ?Instructions ?Recorded bupropion HCl 100 mg tablet,12 hr See Rx Instructions .Route 08/07/24 sustained-release .COMPLEX #30 tabs gabapentin 300 mg capsule See Rx Instructions .Route 0 08/07/24 .COMPLEX #120 caps mirtazapine 30 mg tablet 30 mg PO BEDTIME #30 tabs carisoprodol 350 mg tablet 350 mg PO TID PRN muscle pa in #10 05/25/25 tabs ondansetron 4 mg disintegrating 4 mg PO Q8H PRN nausea and 05/25/25 tablet vomiting #10 tabs prednisone 20 mg tablet 60 mg (3 x 20 mg) PO DAILY 5 days 05/27/25 #15 tabs Allergies Allergy/AdvReac Type Severity Reaction Status Date / Time No Known Allergies (No Known Allergy Verified 05/25/25 16:24 Allergies*) Review of Systems 2 Review of Systems: Yes all other systems are reviewed and are negative Constitutional: Constitutional: Denies fatigue and Denies fever(s) Musculoskeletal: Musculoskeletal: Reports back pain, Reports arthralgias, Denies joint swelling, Reports muscle weakness, Denies numbness, Reports radiating pain into limb and Reports tingling Neurologic: Denies numbness and Reports tingling Endocrine: Endocrine: Denies fatigue [facility] Past Medical History Attestation statement: The following information was validated with the patient. 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 Tobacco Use Status: Never used Tobacco Substance Use Type: Marijuana Physical Exam ED Vital Signs: Vital Signs - 24 hr 05/25/25 16:19 05/25/25 19:46 05/25/25 21:11 Temperature 97.8 F 98.6 F 97.9 F Pulse Rate 83 74 71 Respiratory Rate 16 16 16 Blood Pressure 149/84 H 168/73 H 181/102 H Pulse Oximetry 98 100 99 Oxygen Delivery Method Room Air Room Air Room Air 05/25/25 22:12 Temperature 97.9 F Pulse Rate 71 Respiratory Rate 16 Blood Pressure 181/102 H Pulse Oximetry 99 Oxygen Delivery Method Room Air BMI result Body Mass Index 22.4 Const Other: Alert, Orientation/consciousness: patient oriented x3 Resp Effort & Inspection: normal respiratory effort Cardio Other: Normal peripheral perfusion Skin Other: Warm dry no rash Neuro General: patient oriented x3, gait normal, no focal motor deficits and CN's II- XI intact bilaterally Extrem Other: No swelling, erythema or deformity noted over bilateral hips, no rash noted, strength 5/5 bilateral lower extremities, ambulating with a steady gait Psych Other: Cooperative Course Course Course Narrative: Rapid medical examination performed in triage by Ashley Hinojosa PA-C: Patient is a 44 year old assigned female at presenting to the emergency department with right sided body pain that has caused her to vomit. Patient states she began to have entire right sided body pain that then caused her to vomit. Detailed physical exam and review of systems are deferred to the asset protection detective. Labs ordered. Patient placed back in the waiting room pending room availability and results. Medications Administered Discontinued Medications Generic Name Dose Route Start Last Admin Trade Name Rigo PRN Reason Stop Dose Admin Ketorolac Tromethamine 15 mg 05/25/25 20:53 05/25/25 21:10 Ketorolac Tromethamine 15 Mg/Ml Vial IM 05/25/25 20:54 15 mg ONCE ONE Administration Methocarbamol 1,500 mg 05/25/25 20:53 05/25/25 21:10 Methocarbamol 750 Mg Tablet PO 05/25/25 20:54 1,500 mg ONCE ONE Administration Ondansetron HCl 4 mg 05/25/25 22:15 05/25/25 22:18 Ondansetron Odt 4 Mg Tab.Rapdis TRANSLINGU 05/25/25 22:16 4 mg ONCE ONE Administration Prednisone 10 mg 05/25/25 20:53 05/25/25 21:10 Prednisone 10 Mg Tablet PO 05/25/25 20:54 10 mg ONCE ONE Administration Medical Decision Making Medical Decision Making MDM Narrative: 44-year-old female with a history of MS, fibromyalgia, chronic hip pain, chronic lumbar sacral pain, anxiety, depression, opiate use disorder, who was followed by pain management, presents with right lumbar pain of unclear duration. Patient complaining of right lumbar pain with radiation down right lower extremity. Patient states she has developed paresthesia of medial thigh. Patient also complains of right hip pain, she states she fell today, which has exacerbated her chronic back, pelvis and hip pain. Denies urinary retention or bowel incontinence, no new weakness of lower extremities. Patient states she has an appointment with pain management this week. Problem: Chronic pain, MS, fibromyalgia History: Per patient I have considered the following differential diagnoses: Lumbar compression fracture, lumbar strain, lumbar radiculopathy, cauda equina, fracture, dislocation, bursitis, septic joint Plan: I am obtaining imaging, the patient has chronic pain, she states her pain is exacerbated since the fall. We will be placing on a steroid taper, giving Toradol and a muscle relaxant. The patient is already stating that these medications are not helpful to her. I explained that it would take a few days for her to have relief from her acute on chronic pain. She verbalizes understanding. It is ideal that she has follow up with her pain management provider this week on . She is ambulatory, doubtful that she has a fracture or dislocation of the pelvis/hip. There was no erythema warmth or swelling that has objective to suggest bursitis or septic joint. She is also not having any red flag signs symptoms concerning for cord compression. Labs obtained from triage and are unremarkable I have independently reviewed the following tests: X-ray lumbar spine:Findings: No loss of lumbar vertebral body heights. No acute fracture deformity seen. Interbody disc fusions at L4-5 and L5-S1. Multiple surgical clips anterior to the lower lumbar spine are present, similar to prior. Multilevel degenerative change of the lumbar spine. There is a mild S shaped scoliosis of the lumbar spine. Severe disc height loss at L3-4 is present, similar to prior. IMPRESSION: No acute fracture deformity identified. X-ray right hip pelvis:Findings: Right hip joint space preserved. No fracture deformity of the pelvis or right hip. No disruption of the pelvic ring. Previous disc fusion at L4 through S1. The soft tissues are unremarkable. IMPRESSION: Labs: No leukocytosis, not anemic, no electrolyte abnormality, urine not infected Differential Diagnosis Differential Diagnoses: The differential diagnosis associated with the presentation includes See medical decision-making Admission/Observation Consideration of admission/observation: Escalation of care including admission/observation considered Not applicable Lab Data MDM Lab Attestation statement: I reviewed the patient's lab results. 05/25/25 16:41 05/25/25 16:41 Labs: Lab Results 05/25/25 05/25/25 Range/Units 16:41 21:07 WBC 7.0 (4.8-10.8) X10*3/uL RBC 4.03 L (4.20-5.50) X10*6/uL Hgb 11.8 L (12.0-16.0) g/dl Hct 35.6 L (37.0-47.0) % MCV 88.3 (80.0-98.0) fL MCH 29.3 (27.0-33.0) pg MCHC 33.1 (31.0-35.0) g/dl RDW 13.4 (11.0-16.0) % Plt Count 236 (160-400) X10*3/uL MPV 9.0 L (9.4-12.3) fL Immature Gran % (Auto) 0.1 (0.0-0.4) % Neut % (Auto) 64.4 (45-73) % Lymph % (Auto) 20.7 (20-40) % [place] % (Auto) 10.1 (2-11) % Eos % (Auto) 3.4 (0-4) % Baso % (Auto) 1.3 (0-2) % Lymph # (Auto) 1.5 (1.2-4.9) X10*3/uL [place] # (Auto) 0.7 (0.1-1.2) X10*3/uL Eos # (Auto) 0.2 (0.0-0.4) X10*3/uL Baso # (Auto) 0.1 (0.0-0.2) X10*3/uL Abs Immat Gran (auto) 0.01 (0.00-0.03) X10*3/uL Absolute Neuts (auto) 4.5 (2.0-8.3) x10*3/uL Absolute Nucleated RBC 0.000 (0.0-0.012) X10*3/uL Nucleated RBC % (auto) 0.0 (0.0-0.2) /100WBC Sodium 139 (135-145) mmol/L Potassium 3.6 (3.3-5.1) mmol/L Chloride 104 (96-108) mmol/L Carbon Dioxide 28 (22-29) mmol/L Anion Gap 11 L (12-20) BUN 8 L (9-16) mg/dL Creatinine 0.74 (0.5-1.4) mg/dL Estim Creat Clear Calc 75.9 Estimated GFR > 60 Random Glucose 84 (60-115) mg/dL Calcium 9.0 D (8.4-10.2) mg/dL Magnesium 1.9 (1.6-2.6) mg/dL Total Bilirubin 0.3 (0.0-1.0) mg/dL AST 88 H (5-31) U/L ALT 47 H (0-31) U/L Alkaline Phosphatase 72 (39-117) U/L Total Protein 6.9 (6.5-8.0) g/dL Albumin 4.3 (3.5-5.0) g/dL Urine Color Yellow Urine Appearance Clear Urine pH 7.0 (5.0-9.0) Ur Specific [place] 1.010 (1.005-1.025) Urine Protein Negative (Neg-Trace) mg/dL Urine Glucose (UA) Negative (Negative) mg/dL Urine Ketones Negative (Negative) mg/dL Urine Blood Negative (Negative) Urine Nitrite Negative (Negative) Ur Leukocyte Esterase Trace H (Negative) Urine RBC 0-2 (0-2) /HPF Urine WBC 0-5 (0-5) /HPF Ur Squamous Epith Cells 3-5 (0-2) /HPF Urine Bacteria 1+ (None Seen) Hyaline Casts 0-2 (0-2) /LPF COVID-19 (KRISTIN) Negative (Negative) COVID-19 Clin Com See Note Influenza Type A (LORRAINE) Negative (Negative) Influenza Type B (LORRAINE) Negative (Negative) Influenza A & B Note See Note Radiology Impression Discussion of test interpretation with radiology: I have reviewed the radiologist's reading. Discharge Plan Discharge Clinical Impression: Chronic lumbosacral pain, Chronic hip pain, bilateral, Lumbar radiculopathy Patient Disposition: Home, Self-Care Instructions: Lumbar Radiculopathy (ED), Arthralgia (ED), Lower Back Exercises (ED) Additional Instructions: There were no acute abnormalities that were noted on the x-rays of your lumbar spine, and the hip and pelvis. You are being treated for suspect lumbar radiculopathy. See home care instructions. Take the steroid taper as directed, take the medication in the morning. Use the carisoprodol as needed for pain, to note this medication may cause drowsiness, do not drive or operate machinery while taking the medication. Uses Zofran as needed for nausea. Keep your pending appointment with your pain management provider. Prescriptions: New carisoprodol 350 mg tablet 350 mg PO TID PRN (Reason: muscle pain) Qty: 10 0RF ondansetron 4 mg tablet,disintegrating 4 mg PO Q8H PRN (Reason: nausea and vomiting) Qty: 10 0RF prednisone 20 mg tablet 60 mg PO DAILY 5 Days Qty: 15 0RF No Action clonazepam 1 mg tablet 1 mg PO TID PRN (Reason: Anxiety) Patient Comments: Patient stated she takes as needed. Rx Instructions: Last filled 07/03/24. #19. methadone [Methadone Intensol] 10 mg/mL Concentrate See Rx Instructions .ROUTE .COMPLEX Rx Instructions: Takes 85 mg in the am and 65 mg in the evening. hydroxyzine HCl 25 mg Tablet 25 - 50 mg PO TID PRN (Reason: Anxiety) celecoxib 200 mg Capsule 200 mg PO BID Rx Instructions: Take with meals. bupropion HCl 100 mg tablet sustained-release 12 hr See Rx Instructions .ROUTE .COMPLEX Qty: 30 0RF Rx Instructions: take 2 tqblets po daily in AM and take 1 tablet po daily at lunch time, as directed gabapentin 300 mg capsule See Rx Instructions .ROUTE .COMPLEX Qty: 120 0RF Rx Instructions: take 1 capsule po daily in AM, 1 capsule po daily in afternoon and 2 capsules po daily at bedtime mirtazapine 30 mg tablet 30 mg PO BEDTIME Qty: 30 0RF Stand Alone Forms: Work/School Release Interventions: ED Discharge Assessment Last Done: 05/25/25 22:12 Discharge Date/Time: 05/25/25 22:27 Print Language: Burundian
[2025-05-25 16:45] LABS: MANUAL DIFF FLAG NO
[2025-05-25 16:49] LABS: Hematocrit 35.6 % (37.0-47.0); Hemoglobin 11.8 g/dl (12.0-16.0); Imm Gran Abs Auto 0.01 X10*3/uL (0.00-0.03); Imm Gran Pct Auto 0.1 % (0.0-0.4); Lymphocytes Absolute Auto 1.5 X10*3/uL (1.2-4.9); Mean Corpuscular HGB Conc 33.1 g/dl (31.0-35.0); Mean Corpuscular Hemoglobin 29.3 pg (27.0-33.0); Mean Corpuscular Volume 88.3 fL (80.0-98.0); NRBC Abs Auto 0.000 X10*3/uL (0.0-0.012); NRBC Pct Auto 0.0 /100WBC (0.0-0.2); Platelet Count 236 X10*3/uL (160-400); Red Blood Count 4.03 X10*6/uL (4.20-5.50); White Blood Count 7.0 X10*3/uL (4.8-10.8)
[2025-05-25 17:01] LABS: Alanine Aminotransferase 47 U/L (0-31); Albumin Level 4.3 g/dL (3.5-5.0); Alkaline Phosphatase 72 U/L (39-117); Anion Gap 11 (12-20); Aspartate Amino Transferase 88 U/L (5-31); Blood Urea Nitrogen 8 mg/dL (9-16); Calcium 9.0 mg/dL (8.4-10.2); Carbon Dioxide 28 mmol/L (22-29); Chloride 104 mmol/L (96-108); Creatinine Clr Calc Pharmacy 75.9; Estimated Glomerular Filt Rate > 60; Magnesium 1.9 mg/dL (1.6-2.6); Potassium 3.6 mmol/L (3.3-5.1); Sodium 139 mmol/L (135-145); Total Protein 6.9 g/dL (6.5-8.0)
[2025-05-25 19:46] VITALS: BP 168/73; PULSE 74; RESP 16; TEMP 37; O2SAT 100
--- OUTSIDE RECORDS SUMMARY | 2025-05-25 19:56 | XMS_ITS | Clinical Summary ---
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 Role Phone Unavailable Primary Care Provider Unavailabl e Social History Tobacco Use Types Packs/Day Years Used Date Smoking Tobacco: Never Assessed Comments Unknown Sex and Gender Information Value Date Recorded Sex Assigned at Not on file Legal Sex Female 10:31 PM EST Gender Identity Not on file Sexual Orientation Not on file Plan of Treatment Health Maintenance Due Date Last Done Comments Breast Cancer Screening 1980 DTaP,Tdap,and Td Vaccines (1 - Tdap) 10/29/1998 Hepatitis B Vaccines (1 of 3 - 19+ 3-dose series) 10/29/1998 Cervical Cancer Screening: P ap Smear 10/29/2000 HPV Vaccines (1 - 3-dose SCD M series) 10/29/2006 Depression Screening 07/16/2024 COVID-19 Vaccine ( - 2023-2 5 season) 2025 Influenza Vaccine (#1) 2025 RSV Immunization Adult Patie nts (1 - 1-dose 75+ series) 10/29/2054 HIB Vaccines Aged Out No longer eligi ble based on patient's age to complete this topic Hepatitis A Vaccines Aged Out No long er eligible based on patient's age to complete this topic IPV Vaccines Aged Out No longer eligi ble based on patient's age to complete this topic MMR Vaccines Aged Out No longer eligi ble based on patient's age to complete this topic Meningococcal ACWY Vaccine Aged Out N o longer eligible based on patient's age to complete this topic Meningococcal B Vaccine Aged Out No l onger eligible based on patient's age to complete this topic Pneumococcal Vaccine: Pediat rics (0 to 5 Years) and At-Risk Patients (6 to 49 Years) Aged Out No longer eligible b ased on patient's age to complete this topic RSV Immunization Patients Un marialuisa 20 months Aged Out No longer eligible b ased on patient's age to complete this topic Varicella Vaccines Aged Out No longer eligible based on patient's age to complete this topic
--- OUTSIDE RECORDS SUMMARY | 2025-05-25 19:56 | XMS_ITS | Clinical Summary ---
Author Organization [employer] Address [address] [facility] [address] [place] [address] Care Team Providers Care Logistics Supply Officer Name Role Phone Carol Rosina SANIYA Primary Care Provider [phone] Allergies No known active allergies Medications celecoxib (CeleBREX) 200 MG capsule TAKE 1 CAPSULE BY MOUTH TWICE A DAY WITH MEALS 60 capsule 05/01/20 25 Active methocarbamol (Robaxin) 750 MG tabletIndications :Lumbar radiculopathy TAKE 1 TABLET BY MOUTH THREE TIMES DAILY FOR 10 DAYS 30 tablet 05/01/20 25 Active celecoxib (CeleBREX) 200 MG capsule TAKE 1 CAPSULE BY MOUTH TWICE A DAY WITH MEALS 60 capsule 04/01/20 25 025 Discontinued(Re order (will not trigger notification to Pharmacy)) methocarbamol (Robaxin) 750 MG tabletIndications :Lumbar radiculopathy TAKE 1 TABLET BY MOUTH THREE TIMES DAILY FOR 10 DAYS 30 tablet 04/02/20 25 025 Discontinued(Re order (will not trigger notification to Pharmacy)) Active Problems Problem Noted Date Diagnosed Date Insomnia secondary to chronic pain 07/04/2024 Assessment & Plan (07/04/2024 3:46 PM EST): Recommended pt take 1 gabapentin tab during the day and 2 tabs at night to help with neuropathic pain and to water and gas helper sleep. (Pt currently taking 2 tabs during the day and 1 nightly). Consideration for amitriptyline for pain and sleep however d/t current regimen with gabapentin and muscle relaxers and high fall risk, decided on other treatment modalities. Elevated blood pressure reading 11/14/2023 Assessment & Plan (11/14/2023 5:37 PM EDT): Above goal today, pt will rtc in 4-6 weeks for repeat reading, Healthcare maintenance 11/14/2023 Assessment & Plan (11/14/2023 5:41 PM EDT): Mammogram ordered, Referral to eye care, pt will also establish with dental at [facility] Abnormal liver function tests 11/13/2023 Anemia 11/13/2023 Anxiety 11/13/2023 Assessment & Plan (07/04/2024 3:48 PM EST): Pt will continue with weekly visits with therapist Therapist will continue to manage psych medications Chronic low back pain 11/13/2023 Depressive disorder 11/13/2023 Family history of bipolar disorder 11/13/2023 Former cigarette smoker 11/13/2023 History of substance abuse ([facility]) 11/13/2023 Mild intermittent asthma 11/13/2023 Posttraumatic stress disorder 11/13/2023 Radiculopathy with lower extremity symptoms 10/16 Unintended weight loss 11/13/2023 Lumbar radiculopathy 11/13/2023 Assessment & Plan (07/04/2024 3:43 PM EST): Prior imaging shows no acute abnormalities Will send pt to pain clinic to manage chronic back pain Pt will continue with home stretches Will send celebrex 200 mg BID to take with meals Assessment & Plan (11/14/2023 5:39 PM EDT): Referral to pain management at [facility], may benefit from neurosurgeon reevaluation Pain limits exam, however reflexes la wnl. Breast cancer screening by mammogram 11/13/2023 Muscle spasm 11/13/2023 Assessment & Plan (07/04/2024 3:44 PM EST): Will refill methocarbamol for back spasms Assessment & Plan (11/14/2023 5:39 PM EDT): Prn muscle relaxor prescribed, trial 1/2 tablet at night, aware of side effects and potentially sedating nature of med History of lumbar fusion 01/12/2005 Overview (11/13/2023): 01/12/2005 Anterior disc excision and interbody fusion L4-5, L5-S1 with Dane[employer] LT cages and InFUSE BMP for discogenic pain L4-5, L5-S1 by Kash Silver M.D. and Joss Hernandez M.D. at [facility]. Assessment & Plan (11/14/2023 5:33 PM EDT): Referral to [facility] pain management. Referral to physical therapy, Prn muscle relaxor prescribed Encounters Date Type Department Care Team Description 05/25/2025 Telephone [facility]INE [address] [place] [address] Rosina Medina NP Nurse Triage 05/07/2025 Telephone [facility] [address] [place] [address] Verena Ledezma RN 05/06/2025 Telephone [facility] [address] [place] [address] Rosina Medina NP medical form 05/01/2025 Telephone [facility] [address] [place] [address] Rosina Medina NP Nurse Triage 05/01/2025 Refill [facility] [address] [place] [address] Rosina Medina NP Lumbar radiculopathy 04/01/2025 Refill [facility] [address] [place] [address] Tylor Osborn CNP Lumbar radiculopathy 04/01/2025 Refill [facility] [address] [place] [address] Rosina Medina NP 03/31/2025 Telephone [facility] [address] [place] [address] Rosina Medina NP Durable Medical Equipment 03/31/2025 Refill [facility] [address] [place] [address] Rosina Medina NP 03/24/2025 Refill [facility] [address] [place] [address] Rosina Medina NP Lumbar radiculopathy 02/26/2025 Refill [facility] [address] [place] [address] Rosina Medina NP from Last 3 Months Immunizations Immunization Administration Dates Next Due Influenza, IIV3, injectable 05/17/2015, 6 Influenza, seasonal, injectable, preservative fr ee 02/26/2017,04/02/2016 Moderna Covid-19 Vaccine 12+ 12/17/2020,11/19/19 21 Pneumococcal Polysaccharide PPSV23 12/13/2012 Td (adult), unspecified 12/17/2002 Social History Tobacco Use Types Packs/Day Years Used Date Smoking Tobacco: Never Tobacco Cessation:Counseling Given: Not Answered Alcohol Use Standard Drinks/Week Comments Yes 0 (1 standard drink = 0.6 oz pur e alcohol) Depression Answer Date Recorded Patient Health Questionnaire-9 Score 0 11/13/2023 Patient Health Questionnaire-9 Score 0 11/13/2023 Last PHQ-9: Questionnaire Data Not on file 0 11/13/2023 Depression Answer Date Recorded Patient Health Questionnaire-2 Score 0 11/13/2023 Comments Unknown Sex and Gender Information Value Date Recorded Sex Assigned at Female 05/15/2022 10:37 AM EDT Legal Sex Female 10:37 AM EDT Gender Identity Female 05/15/2022 10:37 AM EDT Sexual Orientation Choose not to disclose 2021 10:37 AM EDT Last Filed Vital Signs Vital Sign Reading Time Taken Comments Blood Pressure 132/84 07/04/2024 1:22 PM EST Pulse 90 07/04/2024 1:22 PM EST Temperature 36.7 C (98 F) 07/04/2024 1:22 PM EST Respiratory Rate 18 07/04/2024 1:22 PM EST Oxygen Saturation 96% 07/04/2024 1:22 PM EST Inhaled Oxygen Concentration - - Weight 53 kg (116 lb 12.8 oz) 07/04/2024 1:22 PM EST Height 157.5 cm (5' 2 ) 11/13/2023 11:51 AM EDT Body Mass Index 21.36 11/13/2023 11:51 AM EDT Plan of Treatment Upcoming Encounters Date Type Department Care Team (Late st Contact Info) Description 09/18/2025 11:00 AM EST Office Visit [facility] [address] [place] [address] Jasmine Sierra, OD [address] [place] [address] Health Maintenance Due Date Last Done Comments CT Colonography 1979 Colonoscopy 1979 Colorectal Cancer Screening 1979 FIT DNA/Cologuard 1979 FIT 1979 FOBT 1979 HIV Screening 1979 SDOH Screening 1979 Sigmoidoscopy 1979 Disability Screening 1979 Alcohol/Substance Use Screening 1991 Family Planning (PISQ) 10/29/1994 HPV Vaccines (1 - 3-dose series) 10/29/1994 Hepatitis C Screening 10/29/1997 Hepatitis B Vaccines (1 of 3 - 19+ 3-dose series) 10/29/1998 Pap Smear 10/29/2000 DTaP/Tdap/Td Vaccines (1 - Tdap) 12/18/2002 12/17/2002 Cervical Cancer Screening 10/29/2009 HPV/Cotest 10/29/2009 Pneumococcal Vaccine: Pediatrics (0 to 5 Years) and At-Risk Patients (6 to 49) Years (2 of 2 - PCV) 12/13/2013 12/13/2012 Mammogram 2019 Depression Screening 11/12/2024 11/13/2023, 11/13/19 24 Tobacco Screening 11/13/2024 11/14/2023 COVID-19 Vaccine ( season) 2025 12/17/2020, 11/18/2020 Influenza Vaccine (#1) 2025 7, 04/02/2016, 05/17/2015, Additional history exists Zoster Vaccines (1 of 2) 10/29/2029 RSV Patients and Patients Aged 60 years or older (1 - 1-dose 75+ series) 10/29/2054 HIB [...] patient's age to complete this topic Meningococcal Vaccine Aged Out No lesly yaneth eligible based on patient's age to complete this topic RSV under 20 months Aged Out No longe r eligible based on patient's age to complete this topic Rotavirus Vaccines Aged Out No longer eligible based on patient's age to complete this topic Procedures Procedure Name Priority Date/Time Associated Diagnosis Comments MAGNESIUM Routine 05/25/2025 4:41 PM EST COMPREHENSIVE METABOLIC PANEL Routine 05/25/2025 4:41 PM EST CBC WITH AUTO DIFFERENTIAL Routine 05/25/2025 4:41 PM EST from Last 3 Months Results * (ABNORMAL) CBC auto differential (05/25/2025 4:41 PM EST) White Blood Count 7.0 4.8 - 10.8 X10*3/uL [facility] Red Blood Count 4.03(L) 4.20 - 5.50 X10*6/uL [facility] Hemoglobin 11.8(L) 12.0 - 16.0 g/dl [facility] Hematocrit 35.6(L) 37.0 - 47.0 % [facility] Mean Corpuscular Volume 88.3 80.0 - 98.0 fL [facility] Mean Corpuscular Hemoglobin 29.3 27.0 - 33.0 pg [facility] Mean Corpuscular HGB Conc 33.1 31.0 - 35.0 g/dl [facility] Red Cell Distribution Width 13.4 11.0 - 16.0 % [facility] Platelet Count 236 160 - 400 X10*3/uL [facility] Mean Platelet Volume 9.0(L) 9.4 - 12.3 fL [facility] Neutrophils Percent Auto 64.4 45 - 73 % [facility] Imm Gran Pct Auto 0.1 0.0 - 0.4 % [facility] Lymphocytes Percent Auto 20.7 20 - 40 % [facility] Monocytes Percent Auto 10.1 2 - 11 % [facility] Eosinophils Percent Auto 3.4 0 - 4 % [facility] Basophils Percent Auto 1.3 0 - 2 % [facility] NRBC Pct Auto 0.0 0.0 - 0.2 /100WBC [facility] Neutrophils Absolute Auto 4.5 2.0 - 8.3 x10*3/uL [facility] Imm Gran Abs Auto 0.01 0.00 - 0.03 X10*3/uL [facility] Lymphocytes Absolute Auto 1.5 1.2 - 4.9 X10*3/uL [facility] Monocytes Absolute Auto 0.7 0.1 - 1.2 X10*3/uL [facility] Eosinophils Absolute Auto 0.2 0.0 - 0.4 X10*3/uL [facility] Basophils Absolute Auto 0.1 0.0 - 0.2 X10*3/uL [facility] NRBC Abs Auto 0.000 0.0 - 0.012 X10*3/uL [facility] 05/25/2025 4:41 PM EST 05/25/2025 4:44 PM EST us Generic External Data Provider LAB BLOOD ORDERAB LES Final Result Performing Organization Address [facility] Co de Phone Number [facility] [address] [place] [phone] * Magnesium (05/25/2025 4:41 PM EST) Magnesium 1.9 1.6 - 2.6 mg/dL [facility] 05/25/2025 4:41 PM EST 05/25/2025 4:44 PM EST Generic External Data Provider LAB BLOOD ORDERAB LES Final Result Performing Organization Address [facility] Co de Phone Number [facility] [address] [place] [address] [phone] * (ABNORMAL) Comprehensive Metabolic Panel (05/25/2025 4:41 PM EST) Sodium 139 135 - 145 mmol/L [facility] Potassium 3.6 3.3 - 5.1 mmol/L [facility] Chloride 104 96 - 108 mmol/L [facility] Carbon Dioxide 28 22 - 29 mmol/L [facility] Anion Gap 11(L) 12 - 20 [facility] Urea Nitrogen (BUN) 8(L) 9 - 16 mg/dL [facility] Creatinine, Serum 0.74 0.5 - 1.4 mg/dL [facility] Creatinine Clr Calc Pharmacy 75.9 [facility] Comment:Provided height and weight: 157.48 cm,55.5 kg.eGFR (calculated from the MDRD study equation) and eCrCl(calculated from the Cockcroft-Gault equation) are based ondifferent parameters and may not yield comparable results.If eCrCl result is absurd, please check patient'sheight/weight. Estimated Glomerular Filt Rate >60 [facility] Comment:Chronic Kidney Disea se: Estimated GFR < 60 mL/min/1.61l5Fewwyu Kidney Disease: Estimated GFR < 15 mL/min/1.73m2 Glucose 84 60 - 115 mg/dL [facility] Calcium 9.0 8.4 - 10.2 mg/dL [facility] Bilirubin, Total 0.3 0.0 - 1.0 mg/dL [facility] Aspartate Amino Transferase 88(H) 5 - 31 U/L [facility] Alanine Aminotransferase 47(H) 0 - 31 U/L [facility] Total Protein 6.9 6.5 - 8.0 g/dL [facility] Albumin Level 4.3 3.5 - 5.0 g/dL [facility] Alkaline Phosphatase 72 39 - 117 U/L [facility] 05/25/2025 4:41 PM EST 05/25/2025 4:44 PM EST us Generic External Data Provider LAB BLOOD ORDERAB LES Final Result [facility] [address] [place] [address] [phone] from Last 3 Months Insurance [employer] < 65 [place] [id number] Care Teams Logistics Supply Officer Relationship Specialty Start Date End Date Rosina Medina NP [address] [place] [address] PCP - General Family Medicine 08/21/23
--- OUTSIDE RECORDS SUMMARY | 2025-05-25 19:56 | XMS_ITS | Encounter Summary ---
Author Organization [employer] Address [address] [facility] [address] [place] [address] Care Team Providers Care Distribution Center Associate Name Role Phone Rosina Medina NP Primary Care Provider [phone] Reason for Visit * Reason Comments Med Refill Encounter Details Date Type Department Care Team (Late st Contact Info) Description 03/24/2025 Refill [facility]INE [address] [place], [place] [phone] Rosina Medina NP [address] [place], [place] [phone] Lumbar radiculopathy Social History Tobacco Use Types Packs/Day Years Used Date Smoking Tobacco: Never Alcohol Use Standard Drinks/Week Comments Yes 0 [...] not to disclose 2021 10:37 AM EDT documented as of this encounter Plan of Treatment Upcoming Encounters Date Type Department Care Team (Late st Contact Info) Description 09/18/2025 11:00 AM EST Office Visit [facility] OPTOMETRY [address] [place], [place] [phone] Jasmine Sierra, OD [address] [place], [place] [phone] documented as of this encounter Visit Diagnoses Diagnosis Lumbar radiculopathy Thoracic or lumbosacral neuritis or radiculitis, unspecified documented in this encounter Additional Health Concerns Assessment Noted Time PHQ-9 Depression Total Score: 0 11/13/19 24 11:54 AM EDT documented as of this encounter Care Teams Distribution Center Associate Relationship Specialty Start Date End Date Rosina Medina NP [address] [place] [phone] PCP - General Family Medicine 08/21/23 documented as of this encounter
--- OUTSIDE RECORDS SUMMARY | 2025-05-25 19:56 | XMS_ITS | Encounter Summary ---
Author Organization [employer] Address [address] [facility] [address] [address] Care Team Providers Care Shed Workers Supervisor Name Role Phone Rosina Medina PILOT BOAT DECKHAND Primary Care Provider [phone] Reason for Visit * Reason Onset Date Comments Nurse Triage 05/25/2025 Encounter Details Date Type Department Care Team ([facility] st Contact Info) Description 05/25/2025 Telephone [facility] [address], [place] [phone] Rosina Medina NP [address] [place] [address] Nurse Triage Social History Tobacco Use Types Packs/Day Years [...] AM EDT documented as of this encounter Miscellaneous Notes * Telephone Encounter - Jesu Dillon - 05/25/2025 12:06 PM EST Symptoms: Sore Throat, Body Aches Outcome: Schedule an urgent appointment (within 4 hours) or talk to a nurse or provider soon Reason: Trouble drinking Please contact pt at [phone] documented in this encounter Plan of Treatment Upcoming Encounters Date Type Department Care Team ([facility] st Contact Info) Description 09/18/2025 11:00 AM EST Office Visit [facility] OPTOMETRY [address] [place] [address] Jasmine Sierra, OD [address] [place] [address] documented as of this encounter Visit Diagnoses Not on filedocumented in this encounter Additional Health Concerns Assessment Noted Time PHQ-9 Depression Total Score: 0 11/13/19 24 11:54 AM EDT documented as of this encounter Care Teams Shed Workers Supervisor Relationship Specialty Start Date End Date Rosina Medina NP [address] [place] [address] PCP - General Family Medicine 08/21/23 documented as of this encounter
--- OUTSIDE RECORDS SUMMARY | 2025-05-25 19:56 | XMS_ITS | Encounter Summary ---
Author Organization [employer] Address [address] [facility] [address] [address] Care Team Providers Care Police Artist Name Role Phone Rosina Medina NP Primary Care Provider [phone] Reason for Visit * Reason Onset Date Comments medical form 05/06/2025 Encounter Details Date Type Department Care Team ([facility] st Contact Info) Description 05/06/2025 Telephone [facility] MED[facility]INE [address] [place], [place] [phone] Rosina Medina NP [address] [place] [address] medical form Social History Tobacco Use Types Packs/Day Years [...] encounter Miscellaneous Notes * Telephone Encounter - Krupa Goldberg - 05/06/2025 4:01 PM EDT Patient called back with new number: Forms faxed to both [phone] and , added patient's * Telephone Encounter - Krupa Goldberg - 05/06/2025 3:30 PM EDT Contacted patient, form is all set, we have attempted to fax to number on form and keep getting back error. Patient to call back this mortgage underwriter with another fax number. * Telephone Encounter - Bradentabitha Ramona - 05/06/2025 1:56 PM EDT Tc from pt requesting update on medical form that was brought in for gas as it was shut off . Pt states she brought in medical form and proof Contact pt at [phone] documented in this encounter Plan of Treatment Upcoming Encounters Date Type Department Care Team (Late st Contact Info) Description 09/18/2025 11:00 AM EST Office Visit [facility] OPTOMETRY [address] [place], [place] [phone] Jasmine Sierra, OD [address] [place] [address] documented as of this encounter Visit Diagnoses Not on filedocumented in this encounter Additional Health Concerns Assessment Noted Time PHQ-9 Depression Total Score: 0 11/13/19 24 11:54 AM EDT documented as of this encounter Care Teams Police Artist Relationship Specialty Start Date End Date Rosina Medina NP [address] [place] [address] PCP - General Family Medicine 08/21/23 documented as of this encounter
--- OUTSIDE RECORDS SUMMARY | 2025-05-25 19:56 | XMS_ITS | Encounter Summary ---
Author Organization [employer] Address [address] [facility] [address] [address] Care Team Providers Care Dental Scheduler Name Role Phone Rosina Medina NP Primary Care Provider [phone] Reason for Visit * Reason Comments Med Refill Encounter Details Date Type Department Care Team (Late st Contact Info) Description 06/30/2024 Refill [facility] MEDICINE [address] [place], [place] [phone] Rosina Medina NP [address] [place] [address] Social History Tobacco Use Types Packs/Day Years [...] Description 09/18/2025 11:00 AM EST Office Visit [facility] OPTOMETRY [address] [place], [place] [phone] Jasmine Sierra, OD [address] [place] [address] documented as of this encounter Visit Diagnoses Not on filedocumented in this encounter Additional Health Concerns Assessment Noted Time PHQ-9 Depression Total Score: 0 11/13/19 24 11:54 AM EDT documented as of this encounter Care Teams Dental Scheduler Relationship Specialty Start Date End Date Rosina Medina NP [address] [place] [address] PCP - General Family Medicine 08/21/23 documented as of this encounter
--- OUTSIDE RECORDS SUMMARY | 2025-05-25 19:56 | XMS_ITS | Encounter Summary ---
Author Organization [employer] Address [address] [facility] [address] [address] Care Team Providers Care Mat Linker Name Role Phone Rosina Medina RETINAL ANGIOGRAPHER Primary Care Provider [phone] Reason for Visit * Reason Onset Date Comments Med Refill 04/01/2025 Encounter Details Date Type Department Care Team (Late st Contact Info) Description 04/01/2025 Refill [facility] MEDICINE [address] [place], [place] [phone] Rosina Medina NP [address] [place] [address] Social History Tobacco Use Types Packs/Day Years [...] Description 09/18/2025 11:00 AM EST Office Visit [facility] OPTOMETRY [address] [place], [place] [phone] Jasmine Sierra, OD [address] [place] [address] documented as of this encounter Visit Diagnoses Not on filedocumented in this encounter Additional Health Concerns Assessment Noted Time PHQ-9 Depression Total Score: 0 11/13/19 24 11:54 AM EDT documented as of this encounter Care Teams Mat Linker Relationship Specialty Start Date End Date Rosina Medina NP [address] [place] [address] PCP - General Family Medicine 08/21/23 documented as of this encounter
--- OUTSIDE RECORDS SUMMARY | 2025-05-25 19:56 | XMS_ITS | Encounter Summary ---
Author Organization [employer] Address [address] [facility] [address] [address] Care Team Providers Care Buckle Gluer Name Role Phone Antonette Nieves ENLISTED ADVISOR Primary Care Provider [phone] Ailyn Holbrook FLUORESCENT LIGHTING MODEL MAKER Primary Care Provider [phone] Rosina Medina FLUORESCENT LIGHTING MODEL MAKER Primary Care Provider [phone] Reason for Visit * Reason Onset Date Comments TP Appt 12/13/2022 Encounter Details Date Type Department Care Team (Late st Contact Info) Description 12/13/2022 Telephone [facility] MEDICINE [address] [place] [address] Antonette Nieves, [facility] [address] [place] [address] TP Appt Social History Tobacco Use Types Packs/Day Years [...] encounter Miscellaneous Notes * Telephone Encounter - Yohannes Weinstein - 12/13/2022 5:37 PM EDT Pt needs a TP Appt. Was last seen on 06/30/2021. Please contact pt at [phone] documented in this encounter Plan of Treatment Upcoming Encounters Date Type Department Care Team (Late st Contact Info) Description 09/18/2025 11:00 AM EST Office Visit [facility] OPTOMETRY [address] [place], [place] [phone] Jasmine Sierra, OD [address] [place] [address] documented as of this encounter Visit Diagnoses Not on filedocumented in this encounter Care Teams Buckle Gluer Relationship Specialty Start Date End Date Antonette Nieves FNP [address] [place] [address] PCP - General Family Medicine 01/10/22 04/23/23 Ailyn Holbrook NP [address] [place] [address] PCP - General Family Medicine 04/24/23 08/20/23 Rosina Medina NP [address] [place] [address] PCP - General Family Medicine 08/21/23 documented as of this encounter
[2025-05-25 21:11] VITALS: BP 181/102; PULSE 71; RESP 16; TEMP 36.6; O2SAT 99
[2025-05-25 21:21] LABS: Appearance Urine Clear; Glucose Urine UA Negative (Negative); PH 7.0 (5.0-9.0); Specific Gravity - Urine 1.010 (1.005-1.025); UMIC TRIGGER UACC YES
[2025-05-25 21:45] LABS: COVID-19 Test Negative (Negative); IDNOW Serial# 55D5AD1C; IDNOW Serial# 58CA691E; Influenza B2 Negative (Negative)
[2025-05-25 22:12] VITALS: BP 181/102; PULSE 71; RESP 16; TEMP 36.6; O2SAT 99
== END 2025-05-25 22:27 | disposition home or self-care (01) ==
PROVIDERS: Physician Assistant Medical; Emergency Provider Emergency Medicine; PCP Nurse Practitioner Family
DX: G89.29 Other chronic pain (principal); M25.551 Pain in right hip; M54.16 Radiculopathy, lumbar region; G35.D Multiple sclerosis, unspecified; M79.7 Fibromyalgia; Z79.899 Other long term (current) drug therapy
CPT/HCPCS: 36415; 72100; 73502; 80053; 81001; 83735; 85025; 87502; 87635; 96372; 99284; J1885

== ENCOUNTER → 2025-05-25 20:52 | Outpatient (BNV) | payer OTHER, SELFPAY | PROVIDERS: Emergency Provider Emergency Medicine; PCP Nurse Practitioner Family; Visit Provider Radiology Diagnostic Radiology | DX: Z04.3 Encounter for examination and observation following other accident (principal) | CPT/HCPCS: 72100; 73502 ==

== ENCOUNTER 2025-06-24 13:06 | Outpatient (AMB) | payer OTHER, SELFPAY ==
[2025-06-24 13:08] VITALS: BP 122/80; PULSE 90; RESP 16; O2SAT 97; BMI 21.6
--- NOTE | 2025-06-24 13:08 | MHC.OFFVIS ---
Vital Signs 06/24/25 13:08 Height 5 ft 2 in Weight 118 lb BMI 21.6 BP 122/80 Blood Pressure Location Lt brachial Position Sitting Respiration 16 Pulse 90 Pulse Source Pulse Oximeter Pulse Oximetry (%) 97 Oxygen Delivery Method Room Air Intake Visit Reasons: Follow Up Phillip from 05/28/25 Provider Contracting Consultant Required: No Accompanied by: Self / Same As Patient Allergies No Known Allergies (No Known Allergies*) Allergy (Verified 06/24/25 13:08) HPI Comments Details: Sandra is back in my office after 10 months of absence. She was examined in August and I tried to schedule her for bilateral diagnostic sacroiliac joint injection. However unfortunately we were not able to reach the patient and schedule the injection. I will schedule her for this injection again. She is suffering from postlaminectomy syndrome. She reports sensation of clicking and associated with that pain in the lower back with certain movements. This could be a result of the fixation screws lose in her vertebral bodies. She is scheduled for MRI of the lumbar spine in July. I would need to evaluate that MRI when it is ready. Prior: pleasant 43 years old female presents in my office with complains on pain in lower back with radiation to the left as well as into the right lower extremity, and also pain in between the shoulder blades intractable nature. She reports that flexing forward and flexing backwards bursa aggravate her pain. She also reports widespread severe spasticity in lower extremities. she has a opioid use disorder. She is currently on methadone 85 mg a.m. 65 mg p.m.. Those are exuberant doses of the opioids. She had multiple surgeries on her back 3 surgeries including [place] of spinal cord stimulator thoracic implantation of anterior fusion L4-5 S1 as well as removal of spinal cord stimulator. She had multiple images of the lumbar spine including MRI of the lumbar spine 5 years ago at [facility]. She has x-rays performed in [facility] and this x-rays are available for review. Physical therapy and chiropractic manipulations were tried by this patient numerous times last time more than 2 years ago she received multiple injections in lumbar spine in the past she does not know the nature of the injections. 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 Tobacco Use Status: Never used Tobacco Substance Use Type: Marijuana Review of Systems Const All systems reviewed & are unremarkable except as noted in HPI and below ENT Reports Normal hearing present Neuro Reports Normal hearing present, Denies Abnormal speech present, Denies confusion and Denies Sensory deficit (Neuro) Psych Denies confusion Physical Exam Const General: no acute distress; No confusion Orientation/consciousness: patient oriented x3 and No confusion Eyes General: appearance normal, both eyes and all related structures Pupils: Equal, round and reactive pupils present EOM: EOMs intact bilaterally Neck Neck: Yes full ROM Chest Chest palpation & inspection: normal inspection of the chest Resp Effort & Inspection: normal respiratory effort, able to speak in complete sentences, normal respiratory pattern, no audible wheezes and no cough Cardio Jugular venous distension: no JVD GI Inspection: Yes normal to inspection Back/Spine/Pelvis Other: There is anterior scar on the abdomen very well-healed history of fusion. There are scars on the back demonstrating neurosurgical replace spinal cord stimulator and the site of the removal of the device. Marco A test is positive bilaterally. Pelvic compression test is positive bilaterally. Pelvic distraction test is positive bilaterally. Thigh thrust test is positive bilaterally. Severe intractable tenderness on palpation in projection of approximately T9-T10-T11 vertebra. Neuro General: patient oriented x3, gait normal and No confusion Cranial nerves: Yes CN's II-XII intact bilaterally, Yes Equal, round and reactive pupils present, Yes Normal hearing present and Yes Ability to bilaterally elevate shoulders present Speech: No Abnormal speech present Gait exam (Neuro): Normal gait present Motor exam (neuro): 5/5 motor strength present throughout Sensory Exam: No Sensory deficit (Neuro) Extrem General: No pedal edema Psych Speech and movement: Normal speech and movement present Affect: normal affect Attitude: cooperative Thought process: Normal thought process present Thought content: Normal thought content present Insight: Good insight present (Psych) Judgement: Good judgement present (Psych) Results Reviewed Results Reviewed: X-ray of the lumbar spine 05/25/2025: Findings: No loss of lumbar vertebral body height. No acute fracture deformity seen. Interbody disc fusion at L4-5 and L5-S1. Multiple surgical clips anterior to the lower lumbar spine and present similar to prior. Multilevel degenerative changes of the lumbar spine. There is mild S shaped scoliosis of the lumbar spine. Severe disc height loss at L 3 L 4 in the presence similar to prior. Apparently no pathology for x-ray of the hip. Assessment & Plan Assessment & Plan (1) Postlaminectomy syndrome of lumbosacral region: Code(s): M96.1 - Postlaminectomy syndrome, not elsewhere classified Category: Medical (2) Sacroiliitis: Code(s): M46.1 - Sacroiliitis, not elsewhere classified Category: Medical (3) Sacroiliac joint dysfunction of both sides: Code(s): M53.3 - Sacrococcygeal disorders, not elsewhere classified Category: Medical (4) Chronic pain syndrome: Code(s): G89.4 - Chronic pain syndrome Category: Medical (5) Opioid use disorder: Code(s): F11.90 - Opioid use, unspecified, uncomplicated Category: Medical (6) MARCOS (generalized anxiety disorder): Code(s): F41.1 - Generalized anxiety disorder Category: Medical (7) Opioid dependence on maintenance agonist therapy, no symptoms: Code(s): F11.20 - Opioid dependence, uncomplicated Category: Medical (8) MDD (major depressive disorder), recurrent episode, moderate: Code(s): F33.1 - Major depressive disorder, recurrent, moderate Category: Medical (9) Intractable back pain: Code(s): M54.9 - Dorsalgia, unspecified Category: Medical Plan This patient is unfortunately suffering from opioid use disorder therefore potential treatment of her pain with neuromodulation probably is limited by sprint PNS only. The other modalities such as spinal cord stimulator and pain pump would require psychological evaluation and it remains to be seen whether this patient can not past psychological evaluation. I will schedule her again for bilateral diagnostic sacroiliac joint injection. As of reporting her clicking sensation and painful sensation in the lower lumbar spine it could be because of the loose screws in her lumbar spine. I strongly recommended her to go to a primary care physician and have evaluation of presence of the osteoporosis. She is scheduled for MRI in July. I recommended her to schedule appointment with me to discuss this MRI as soon as she will step out of for the MRI machine. Otherwise I will see her after the diagnostic sacroiliac joint injection bilateral. Coding Level of Care Code Est Pt Level 3 (67380) Diagnoses Postlaminectomy syndrome of lumbosacral region M96.1 Sacroiliitis M46.1 Sacroiliac joint dysfunction of both sides M53.3 Chronic pain syndrome G89.4 Opioid use disorder F11.90 MARCOS (generalized anxiety disorder) F41.1 Opioid dependence on maintenance agonist therapy, no symptoms F11.20 MDD (major depressive disorder), recurrent episode, moderate F33.1 Intractable back pain M54.9
--- OUTSIDE RECORDS SUMMARY | 2025-06-24 20:17 | XMS_ITS | Encounter Summary ---
Author Organization [employer] Address [address] [facility] [address] [place] [address] Care Team Providers Care Fire Warden Name Role Phone Rosina Medina NP Primary Care Provider [phone] Reason for Visit * Reason Comments Med Refill Encounter Details Date Type Department Care Team (Late st Contact Info) Description 06/30/2024 Refill [facility] [address] [place] [address] [phone] Rosina Medina NP [address] [place], [place] [phone] Social History Tobacco Use Types Packs/Day Years [...] Care Team (Late st Contact Info) Description 07/06/2025 2:30 PM EST Office Visit [facility] [address] [place] [phone] Rosina Medina NP [address] [place] [address] 09/18/2025 11:00 AM EST Office Visit [facility] [address] [place], [place] [phone] Jasmine Sierra, OD [address] [place] [address] documented as of this encounter Visit Diagnoses Not on filedocumented in this encounter Additional Health Concerns Assessment Noted Time PHQ-9 Depression Total Score: 0 11/13/19 11:54 AM EDT documented as of this encounter Care Teams Fire Warden Relationship Specialty Start Date End Date Rosina Medina NP [address] [place] [address] PCP - General Family Medicine 08/21/23 documented as of this encounter
--- OUTSIDE RECORDS SUMMARY | 2025-06-24 20:17 | XMS_ITS | Encounter Summary ---
Author Organization [employer] Address [address] [facility] [address] [place] [address] Care Team Providers Care Basketball Assembler Name Role Phone Rosina Medina NP Primary Care Provider [phone] Reason for Visit * Reason Onset Date Comments Med Refill 04/01/2025 Encounter Details Date Type Department Care Team (Late st Contact Info) Description 04/01/2025 Refill [facility] [address] [place] [address] [phone] Rosina Medina NP [address] [place], [place] [phone] Social History Tobacco Use Types Packs/Day Years [...] Description 07/06/2025 2:30 PM EST Office Visit [facility] [address] [place] [phone] Rosina Medina NP [address] [place] [address] 09/18/2025 11:00 AM EST Office Visit [facility] [address] [place], [place] [phone] Jasmine Sierra, OD [address] [place] [address] documented as of this encounter Visit Diagnoses Not on filedocumented in this encounter Additional Health Concerns Assessment Noted Time PHQ-9 Depression Total Score: 0 11/13/19 24 11:54 AM EDT documented as of this encounter Care Teams Basketball Assembler Relationship Specialty Start Date End Date Rosina Medina NP [address] [place] [phone] PCP - General Family Medicine 08/21/23 documented as of this encounter
--- OUTSIDE RECORDS SUMMARY | 2025-06-24 20:17 | XMS_ITS | Encounter Summary ---
Author Organization [employer] Address [address] [facility] [address] [place] [address] Care Team Providers Care Software Reliability Engineer Name Role Phone Rosina Medina NP Primary Care Provider [phone] Reason for Visit * Reason Onset Date Comments medical form 05/06/2025 Encounter Details Date Type Department Care Team ([facility] st Contact Info) Description 05/06/2025 Telephone [facility] [address] [place], [place] [phone] Rosina Medina NP [address] [place] [address] medical form Social History Tobacco Use Types [...] with new number: Forms faxed to both [phone] and , added patient's * Telephone Encounter - Krupa Goldberg - 05/06/2025 3:30 PM EDT Contacted patient, form is all set, we have attempted to fax to number on form and keep getting back error. Patient to call back this information writer with another fax number. * Telephone Encounter - Corey Greene - 05/06/2025 1:56 PM EDT Tc from pt requesting update on medical form that was brought in for gas as it was shut off . Pt states she brought in medical form and proof Contact pt at [phone] documented in this encounter Plan of Treatment Upcoming Encounters Date Type Department Care Team (Late st Contact Info) Description 07/06/2025 2:30 PM EST Office Visit [facility] [address] [place] [address] Rosina Medina NP [address] [place] [address] 09/18/2025 11:00 AM EST Office Visit [facility] [address] [place] [address] TarkaJasmine, OD [address] [place] [address] documented as of this encounter Visit Diagnoses Not on filedocumented in this encounter Additional Health Concerns Assessment Noted Time PHQ-9 Depression Total Score: 0 11/13/19 24 11:54 AM EDT documented as of this encounter Care Teams Software Reliability Engineer Relationship Specialty Start Date End Date Rosina Medina NP [address] [place] [address] PCP - General Family Medicine 08/21/23 documented as of this encounter
--- OUTSIDE RECORDS SUMMARY | 2025-06-24 20:17 | XMS_ITS | Encounter Summary ---
Author Organization [employer] [facility] Address [address] [facility] [address] [place] [address] Care Team Providers Care Fnps Name Role Phone Rosina Medina NP Primary Care Provider Reason for Visit * Reason Comments Med Refill Encounter Details Date Type Department Care Team (Late st Contact Info) Description 03/24/2025 Refill [facility] [address] [place] [address] [phone] Rosina Medina NP [address] [place], [place] [phone] Lumbar radiculopathy Social History Tobacco Use Types [...] Description 07/06/2025 2:30 PM EST Office Visit [facility] [address] [place] [phone] Rosina Medina NP [address] [place], [place] [phone] 09/18/2025 11:00 AM EST Office Visit [facility] [address] [place], [place] [phone] Jasmine Sierra, OD [address] [place] [address] documented as of this encounter Visit Diagnoses Diagnosis Lumbar radiculopathy Thoracic or lumbosacral neuritis or radiculitis, unspecified documented in this encounter Additional Health Concerns Assessment Noted Time PHQ-9 Depression Total Score: 0 11/13/19 24 11:54 AM EDT documented as of this encounter Care Teams Fnps Relationship Specialty Start Date End Date Rosina Medina NP [address] [place] [address] PCP - General Family Medicine 08/21/23 documented as of this encounter
--- OUTSIDE RECORDS SUMMARY | 2025-06-24 20:17 | XMS_ITS | Clinical Summary ---
Author Organization [employer] Address [address] [facility] [address] [place] [address] Care Team Providers Care Architectural Engineer Name Role Phone Carol Rosina SANIYA Primary Care Provider [phone] Allergies No known active allergies Medications celecoxib (CeleBREX) 200 MG capsule TAKE 1 CAPSULE BY MOUTH TWICE A DAY WITH MEALS 60 capsule 05/01/20 25 Active Wellbutrin XL 300 MG 24 hr tablet 07/03/20 11 Active clonazePAM (KlonoPIN) 1 MG tablet Take 1 mg by mouth 2 times daily. Active gabapentin (Neurontin) 300 MG capsule 05/29/20 25 Active mirtazapine (Remeron) 45 MG tablet Take 45 mg by mouth at bedtime. 04/16/20 25 Active ibuprofen 600 MG tablet Take 1 tab orally tid prn pain with food intake 90 tablet 05/30/20 25 Active Diclofenac Sodium 1 % gel Apply bid to effected area prn pain 100 g 11 05/30/20 25 Active Omeprazole 20 MG tablet delayed-release Take 1 tablet (20 mg) by mouth Once per day. 30 tablet 06/01/20 25 Active baclofen (Lioresal) 10 MG tablet Take 1 tablet (10 mg) by mouth 3 times daily. 30 tablet 06/01/20 25 Active methocarbamol (Robaxin) 750 MG tabletIndication s:Lumbar radiculopathy TAKE 1 TABLET BY MOUTH THREE TIMES DAILY FOR 10 DAYS 30 tablet 05/01/20 25 025 Discontinued(Re order (will not trigger notification to Pharmacy)) ibuprofen 600 MG tablet Take 1 tablet by mouth every 6 (six) hours during the day. 05/07/20 25 025 Discontinued(Re order (will not trigger notification to Pharmacy)) methocarbamol (Robaxin) 750 MG tabletIndication s:Lumbar radiculopathy TAKE 1 TABLET BY MOUTH THREE TIMES DAILY FOR 10 DAYS 30 tablet 05/30/20 25 025 Discontinued Active Problems Problem Noted Date Diagnosed Date Insomnia secondary to chronic pain 07/04/2024 Assessment & Plan (07/04/2024 3:46 PM EST): Recommended pt take 1 gabapentin tab during the day and 2 tabs at night to help with neuropathic pain and to calender worker helper sleep. (Pt currently taking 2 tabs [...] pt will also establish with dental at [facility] Abnormal liver function tests 11/13/2023 Anemia 11/13/2023 Anxiety 11/13/2023 Assessment & Plan (07/04/2024 3:48 PM EST): Pt will continue with weekly visits with therapist Therapist will continue to manage psych medications Chronic low back pain 11/13/2023 Assessment & Plan (06/01/2025 5:13 PM EST): Orders: MR Lumbar Spine w/o Contrast; Future Referral to Physical Therapy; Future Depressive disorder 11/13/2023 Family history of bipolar disorder 11/13/2023 Former cigarette smoker 11/13/2023 History of substance abuse ([facility]) 11/13/2023 Mild intermittent asthma 11/13/2023 [...] PM EDT): Referral to pain management at [facility], may benefit from neurosurgeon reevaluation Pain limits [...] Silver M.D. and Joss Hernandez M.D. at [facility]. Assessment & Plan (11/14/2023 5:33 PM EDT): Referral to [facility] pain management. Referral to physical therapy, Prn muscle relaxor prescribed Encounters Date Type Department Care Team Description 06/01/2025 3:30 PM EST Office Visit [facility] [address] [place] [address] Rosina Medina NP Chronic low back pain without sciatica, unspecified back pain laterality (Primary Dx) 06/01/2025 Travel 06/01/[address] [facility] [address] [place] [address] Rosina Medina NP NTTS Follow Up 05/30/2025 11:40 AM EST Office Visit [facility] [address] [place] [phone] Ester John MD Chronic bilateral low back pain with right-sided sciatica (Primary Dx); Lumbar radiculopathy; History of lumbar fusion; Posttraumatic stress disorder 05/30/2025 Travel 05/28/[address] [address] Rosina Medina, SANIYA Nurse Triage 05/25/2025 Orders Only [facility] External Provider, [facility] 05/25/[address] [address] Rosina Medina NP Nurse Triage 05/07/[address] [address] Verena Ledezma RN 05/06/[address] [address] Rosina Medina NP medical form 05/01/[address] [address] Rosina Medina NP Nurse Triage 05/01/[address] [address] Rosina Medina NP Lumbar radiculopathy 04/01/[address] [address] Tylor Osborn CNP Lumbar radiculopathy 04/01/[address] [address] Rosina Medina NP 03/31/[address] [address] Rosina Medina NP Durable Medical Equipment 03/31/[address] [address] Rosnia Medina NP from Last 3 Months Immunizations Immunization Administration Dates Next Due Influenza, IIV3, injectable 05/17/2015, 6 Influenza, seasonal, injectable, preservative fr ee 02/26/2017,04/02/2016 Moderna Covid-19 Vaccine 12+ 12/17/2020,11/19/19 21 Pneumococcal Polysaccharide PPSV23 12/13/2012 Td (adult), unspecified 12/17/2002 Social History Tobacco Use Types Packs/Day Years Used Date Smoking Tobacco: Never Smokeless Tobacco: Never Tobacco Cessation:Counseling Given: Not Answered [...] Sign Reading Time Taken Comments Blood Pressure 132/86 06/01/2025 3:52 PM EST Pulse 88 06/01/2025 3:52 PM EST Temperature 36.3 C (97.3 F) 06/01/2025 3:52 PM EST Respiratory Rate 20 06/01/2025 3:52 PM EST Oxygen Saturation 97% 06/01/2025 3:52 PM EST Inhaled Oxygen Concentration - - Weight 55.8 kg (123 lb) 06/01/2025 3:52 PM EST Height 157.5 cm (5' 2 ) 06/01/2025 3:52 PM EST Body Mass Index 22.5 06/01/2025 3:52 PM EST Plan of Treatment Upcoming Encounters Date Type Department Care Team (Late st Contact Info) Description 07/06/2025 2:30 PM EST Office Visit [facility] [address] [place] [address] Rosina Medina NP [address] [place] [address] 09/18/2025 11:00 AM EST Office Visit [facility] [address] [place] [address] Jasmine Sierra, OD [address] [place] [address] Health Maintenance Due Date Last Done Comments [...] 2019 Depression Screening 11/12/2024 11/13/2023, 11/13/19 24 COVID-19 Vaccine (3 - season) 2025 12/17/2020, 11/18/2020 Influenza Vaccine (#1) 2025 7, 04/02/2016, 05/17/2015, Additional history exists Tobacco Screening 06/01/2026 06/01/2025 Zoster Vaccines (1 of 2) 10/29/2029 RSV [...] Procedure Name Priority Date/Time Associated Diagnosis Comments XR LUMBAR SPINE 2-3 VIEWS Routine 05/25/2025 9:26 PM EST XR HIP RIGHT WITH PELVIS 1 VIEW Routine 05/25/2025 9:26 PM EST COVID-19 ID NOW (MUSTAFA) Routine 05/25/2025 9:07 PM EST URINALYSIS, COMPLETE, WITH REFLEX TO CULTURE Routine 05/25/2025 9:07 PM EST INFLUENZA A B2 ID NOW (MUSTAFA) Routine 05/25/2025 9:07 PM EST MAGNESIUM Routine 05/25/2025 4:41 PM EST COMPREHENSIVE METABOLIC PANEL Routine 05/25/2025 4:41 PM EST CBC WITH AUTO DIFFERENTIAL Routine 05/25/2025 4:41 PM EST from Last 3 Months Results * XR Hip right with Pelvis 1 view (05/25/2025 9:26 PM EST) Anatomical Region Laterality Modality Lower Extremities, Hip Bilateral Radiograp hic Imaging 05/25/2025 9:26 PM EST Narrative 05/25/2025 9:27 PM EST [address] [address] XRay Report Signed Patient: Ellen Flores MR#: [id number] 1 : 1980 Acct:[id number] Age/Sex: 44 / F ADM Date: 05/25/25 Loc: HO.ED Attending Dr: Ordering Physician: Pamela Smith Date of Service: 05/25/25 Procedure(s): XR hip RT w PEL1V Accession Number(s): [id number] cc: Pamela Smith; Rosina Medina PHOTOENGRAVER Reason for Exam: trauma CLINICAL HISTORY: trauma 3 view, pelvis and right hip Comparison: None provided Findings: Right hip joint space preserved. No fracture deformity of the pelvis or right hip. No disruption of the pelvic ring. Previous disc fusion at L4 through S1. The soft tissues are unremarkable. IMPRESSION: No acute findings. This document has been electronically signed by: Rasheed Garduno MD on 05/25/2025 21:26:21 Dictated By: Rasheed Garduno MD Signed By: <Electronically signed by Rasheed Garduno MD in OV> 05/25/252125 DD/ 25 TD/TT: 05/25/252125 Gallery Or Museum Attendant: Procedure Note Donotuseinterpreter, Image - 05/25/2025 [place] [address] XRay Report Signed Patient: Elroy Flores#: [id number] 1 : 1980Acct:[id number] Age/Sex: 44 / FADM Date: 05/25/25 Loc: HO.ED Attending Dr: Ordering Physician: Pamela Smith Date of Service: 05/25/25 Procedure(s): XR hip RT w PEL1V Accession Number(s): [id number] cc: Pamela Smith; Rosina Medina PHOTOENGRAVER Reason for Exam: trauma CLINICAL HISTORY: trauma 3 view, pelvis and right hip Comparison: None provided Findings: Right hip joint space preserved. No fracture deformity of the pelvis or right hip. No disruption of the pelvic ring. Previous disc fusion at L4 through S1. The soft tissues are unremarkable. IMPRESSION: No acute findings. This document has been electronically signed by: Rasheed Garduno MD on 05/25/2025 21:26:21 Dictated By: Rasheed Garduno MD Signed By: <Electronically signed by Rasheed Garduno MD in OV> 05/25/252125 DD/ 25 TD/TT: 05/25/252125 Gallery Or Museum Attendant: us [facility] External Provider IMG XR PROCEDURES Edited Result - Final * XR Lumbar Spine 2-3 Views (05/25/2025 9:26 PM EST) Anatomical Region Laterality Modality Spine, L-spine Radiographic Gabi ging 05/25/2025 9:26 PM EST Narrative 05/25/2025 9:28 PM EST [address] [address] XRay Report Signed Patient: Ellen Flores MR#: [id number] 1 : 1980 Acct:[id number] Age/Sex: 44 / F ADM Date: 05/25/25 Loc: HO.ED Attending Dr: Ordering Physician: Pamela Smith Date of Service: 05/25/25 Procedure(s): XR lumbar spine 2-3V Accession Number(s): [id number] cc: Pamela Smith; Rosina Medina NP Reason for Exam: trauma CLINICAL HISTORY: trauma --- Additional Notes or Special Instructions: compression fx? 3 views lumbar spine Comparison: CR/SR - XR LUMBAR SPINE 2-3 VIEWS - 06/30/24 18:55 EST Findings: No loss of lumbar vertebral body heights. No acute fracture deformity seen. Interbody disc fusions at L4-5 and L5-S1. Multiple surgical clips anterior to the lower lumbar spine are present, similar to prior. Multilevel degenerative change of the lumbar spine. There is a mild S shaped scoliosis of the lumbar spine. Severe disc height loss at L3-4 is present, similar to prior. IMPRESSION: No acute fracture deformity identified. This document has been electronically signed by: Rasheed Garduno MD on 05/25/2025 21:26:35 Dictated By: Rasheed Garduno MD Signed By: <Electronically signed by Rasheed Garduno MD in OV> 05/25/252126 DD/ 25 TD/TT: 05/25/252125 Gallery Or Museum Attendant: Procedure Note Donotuseinterpreter, Image - 05/25/[address] [address] XRay Report Signed Patient: Elroy Flores#: [id number] 1 : 1980Acct:[id number] Age/Sex: 44 / FADM Date: 05/25/25 Loc: HO.ED Attending Dr: Ordering Physician: Pamela Smith Date of Service: 05/25/25 Procedure(s): XR lumbar spine 2-3V Accession Number(s): [id number] cc: Pamela Smith; Rosina Medina NP Reason for Exam: trauma CLINICAL HISTORY: trauma --- Additional Notes or Special Instructions:compression fx? 3 views lumbar spine Comparison: CR/SR - XR LUMBAR SPINE 2-3 VIEWS - 06/30/24 18:55 EST Findings: No loss of lumbar vertebral body heights. No acute fracture deformity seen. Interbody disc fusions at L4-5 and L5-S1. Multiple surgical clips anterior to the lower lumbar spine are present, similar to prior. Multilevel degenerative change of the lumbar spine. There is a mild S shaped scoliosis of the lumbar spine. Severe disc height loss at L3-4 is present, similar to prior. IMPRESSION: No acute fracture deformity identified. This document has been electronically signed by: Rasheed Garduno MD on 05/25/2025 21:26:35 Dictated By: Rasheed Garduno MD Signed By: <Electronically signed by Rasheed Garduno MD in OV> 05/25/252126 DD/ 25 TD/TT: 05/25/252125 Gallery Or Museum Attendant: [facility] External Provider IMG XR PROCEDURES Edited Result - Final * Influenza A B2 ID NOW (Mustafa) (05/25/2025 9:07 PM EST) IDNOW SERIAL# [id number] [facility] Influenza A Negative Negative [facility] Influenza B2 Negative Negative [facility] Influenza A B2 Note See Note [facility] Comment:The Mustafa ID NOW In fluenza A B2 test is used for thequalitative detection of influenza A and B from patientswith signs and symptoms of respiratory infection.Negative results do not preclude influenza virus infectionand should not be used as the sole basis for diagnosis,treatment or other patient management decisions.There is a risk of false negative results due to thepresence of variants in the viral targets of the assay, lowlevels of virus in the specimen and co- infection withRespiratory Syncytial Virus. 05/25/2025 9:07 PM EST 05/25/2025 9:16 PM EST us Generic External Data Provider LAB MICROBIOLOGY - GENERAL ORDERABLES Final Result [facility] [address] [place] [address] [phone] * COVID-19 ID NOW (TrackerSphere) (05/25/2025 9:07 PM EST) IDNOW SERIAL# [id number] [facility] COVID-19 TEST Negative Negative [facility] COVID-19 NOTE See Note [facility] Comment: Results are for the identification of SARS-CoV2 RNA. TheSARS-CoV2 RNA is generally detectable in respiratory samplesduring the acute phase of infection. Positive results areindicative of the presence of SARS-CoV-2 RNA; clinicalcorrelation with patient history and other diagnosticinformation is necessary to determine patient infectionstatus. Positive results do not rule out bacterial infectionor co- infection with other viruses.Testing facilities within the [facility] and itsterritories are required to report all positive results tothe appropriate public health authorities.Negative results should be treated as presumptive and, ifinconsistent with clinical signs and symptoms or necessaryfor patient management, should be tested with differentauthorized or cleared molecular tests. Negative results donot preclude SARS-CoV2 RNA infection and should not be usedas the sole basis for patient management decisions. Negativeresults should be considered in the context of a patient'srecent exposures, history and the presence of clinical signsand symptoms consistent with COVID-19.This test has been authorized by the FDA under an EmergencyUse Authorization (EUA) for use by authorized laboratories.Testing performed on the [employer] ID NOW utilizing NAAT. 05/25/2025 9:07 PM EST 05/25/2025 9:16 PM EST Generic External Data Provider LAB MOLECULAR CRISTIN GNOSTICS ORDERABLES Final Result Performing Organization Address [facility] [[email or web address]] de Phone Number [facility] [address] [place] [address] [phone] * (ABNORMAL) Urinalysis, Complete, with Reflex to Culture (05/25/2025 9:07 PM EST) Color Urine Yellow [facility] Appearance Urine Clear [facility] PH 7.0 5.0 - 9.0 [facility] Glucose Urine UA Negative Negative mg/dL [facility] Urine Blood Negative Negative [facility] Specific [place] - Urine 1.010 1.005 - 1.025 [facility] Urine Protein Negative Neg-Trace mg/dL [facility] Urine Ketones Negative Negative mg/dL [facility] Nitrite Urine Negative Negative [facility] Leukocyte Esterase Urine Trace(A) Negative [facility] RBC Urine 0-2 0 - 2 /HPF [facility] Urine WBC 0-5 0 - 5 /HPF [facility] Urine Squamous Epithelial Cell 3-5 0 - 2 /HPF [facility] Urine Bacteria 1+ None Seen [facility] Hyaline Casts, Urine 0-2 0 - 2 /LPF [facility] 05/25/2025 9:07 PM EST 05/25/2025 9:16 PM EST Narrative [facility] - 05/25/2025 9:47 PM EST Urine, Clean Catch Generic External Data Provider LAB URINE ORDERAB LES Final Result Performing Organization Address [facility] Co de Phone Number [facility] [address] [place] [phone] * (ABNORMAL) CBC auto differential (05/25/2025 4:41 PM EST) White Blood Count 7.0 4.8 - 10.8 X10*3/uL [facility] Red Blood Count 4.03(L) 4.20 - 5.50 X10*6/uL [facility] Hemoglobin 11.8(L) 12.0 - 16.0 g/dl [facility] Hematocrit 35.6(L) 37.0 - 47.0 % [facility] Mean Corpuscular Volume 88.3 80.0 - 98.0 fL [facility] Mean Corpuscular Hemoglobin 29.3 27.0 - 33.0 pg [facility] Mean Corpuscular HGB Conc 33.1 31.0 - 35.0 g/dl [facility] Red Cell Distribution Width 13.4 11.0 - 16.0 % [facility] Platelet Count 236 160 - 400 X10*3/uL [facility] Mean Platelet Volume 9.0(L) 9.4 - 12.3 fL [facility] Neutrophils Percent Auto 64.4 45 - 73 % [facility] Imm Gran Pct Auto 0.1 0.0 - 0.4 % [facility] Lymphocytes Percent Auto 20.7 20 - 40 % [facility] Monocytes Percent Auto 10.1 2 - 11 % [facility] Eosinophils Percent Auto 3.4 0 - 4 % [facility] Basophils Percent Auto 1.3 0 - 2 % [facility] NRBC Pct Auto 0.0 0.0 - 0.2 /100WBC [facility] Neutrophils Absolute Auto 4.5 2.0 - 8.3 x10*3/uL [facility] Imm Gran Abs Auto 0.01 0.00 - 0.03 X10*3/uL [facility] Lymphocytes Absolute Auto 1.5 1.2 - 4.9 X10*3/uL [facility] Monocytes Absolute Auto 0.7 0.1 - 1.2 X10*3/uL [facility] Eosinophils Absolute Auto 0.2 0.0 - 0.4 X10*3/uL [facility] Basophils Absolute Auto 0.1 0.0 - 0.2 X10*3/uL [facility] NRBC Abs Auto 0.000 0.0 - 0.012 X10*3/uL [facility] 05/25/2025 4:41 PM EST 05/25/2025 4:44 PM EST Generic External Data Provider LAB BLOOD ORDERAB LES Final Result Performing Organization Address [facility]/ZIP Co de Phone Number [facility] [address] [place] [phone] * Magnesium (05/25/2025 4:41 PM EST) Pathologist [facility] Magnesium 1.9 1.6 - 2.6 mg/dL [facility] 05/25/2025 4:41 PM EST 05/25/2025 4:44 PM EST [employer] External Data Provider LAB BLOOD ORDERAB LES Final Result Performing Organization Address [facility] [[email or web address]] de Phone Number [facility] [address] [place] [phone] * (ABNORMAL) Comprehensive Metabolic Panel (05/25/2025 4:41 PM EST) Pathologist [facility] Sodium 139 135 - 145 mmol/L [facility] Potassium 3.6 3.3 - 5.1 mmol/L [facility] Chloride 104 96 - 108 mmol/L [facility] Carbon Dioxide 28 22 - 29 mmol/L [facility] Anion Gap 11(L) 12 - 20 [facility] Urea Nitrogen (BUN) 8(L) 9 - 16 mg/dL [facility] Creatinine, Serum 0.74 0.5 - 1.4 mg/dL [facility] Creatinine Clr Calc Pharmacy 75.9 [facility] Comment:Provided height and weight: 157.48 cm,55.5 kg.eGFR (calculated from the MDRD study equation) and eCrCl(calculated from the Cockcroft-Gault equation) are based ondifferent parameters and may not yield comparable results.If eCrCl result is absurd, please check patient'sheight/weight. Estimated Glomerular Filt Rate >60 [facility] Comment:Chronic Kidney Disea se: Estimated GFR < 60 mL/min/1.56p1Yvspbi Kidney Disease: Estimated GFR < 15 mL/min/1.73m2 Glucose 84 60 - 115 mg/dL [facility] Calcium 9.0 8.4 - 10.2 mg/dL [facility] Bilirubin, Total 0.3 0.0 - 1.0 mg/dL [facility] Aspartate Amino Transferase 88(H) 5 - 31 U/L [facility] Alanine Aminotransferase 47(H) 0 - 31 U/L [facility] Total Protein 6.9 6.5 - 8.0 g/dL [facility] Albumin Level 4.3 3.5 - 5.0 g/dL [facility] Alkaline Phosphatase 72 39 - 117 U/L [facility] 05/25/2025 4:41 PM EST 05/25/2025 4:44 PM EST us Generic External Data Provider LAB BLOOD ORDERAB LES Final Result Performing Organization Address City/State/[facility] Co de Phone Number [facility] [address] [place] [phone] from Last 3 Months Insurance [facility] < [address] [place] [id number] Care Teams Architectural Engineer Relationship Specialty Start Date End Date Rosina Medina NP [address] [place] [phone] PCP - General Family Medicine 08/21/23
--- OUTSIDE RECORDS SUMMARY | 2025-06-24 20:18 | XMS_ITS | Clinical Summary ---
Author Organization [facility] it Address [address] [place] [address] Care Team Providers Care Food Analyst Name Role Phone Unavailable Primary Care Provider [...] series) 10/29/2006 Depression Screening 07/16/2024 COVID-19 Vaccine (1 - 2024-2 6 season) 2025 Influenza Vaccine (#1) 2025 RSV [...]
--- OUTSIDE RECORDS SUMMARY | 2025-06-24 20:18 | XMS_ITS | Encounter Summary ---
Author Organization [employer] Address [address] [facility] [address] [place] [address] Care Team Providers Care Real Estate Rep Name Role Phone Antonette Nieves TELLER VAULT Primary Care Provider [phone] Ailyn Holbrook ORTHOTIC/PROSTHETIC CLINICIAN Primary Care Provider [phone] Rosina Medina ORTHOTIC/PROSTHETIC CLINICIAN Primary Care Provider [phone] Reason for Visit * Reason Onset Date Comments TP Appt 12/13/2022 Encounter Details Date Type Department Care Team (Late st Contact Info) Description 12/13/2022 Telephone [facility] [address] [place] [address] Antonette Nieves, [facility] [address] [place] [address] TP Appt Social History Tobacco Use Types [...] seen on 06/30/2021. Please contact pt at [phone] documented in this encounter Plan of Treatment Upcoming Encounters Date Type Department Care Team (Late st Contact Info) Description 07/06/2025 2:30 PM EST Office Visit [facility] [address] [place] [address] Rosina Medina NP [address] [place] [address] 09/18/2025 11:00 AM EST Office Visit [facility] [address] [place], [place] [phone] Jasmine Sierra, OD [address] [place] [address] documented as of this encounter Visit Diagnoses Not on filedocumented in this encounter Care Teams Real Estate Rep Relationship Specialty Start Date End Date OtisAntonette FNP [address] [place] [phone] PCP - General Family Medicine 01/10/22 04/23/23 Ailyn Holbrook NP [address] [place] [phone] PCP - General Family Medicine 04/24/23 08/20/23 Rosina Medina NP [address] [place] [address] [phone] PCP - General Family Medicine 08/21/23 documented as of this encounter
--- OUTSIDE RECORDS SUMMARY | 2025-06-24 20:18 | XMS_ITS | Encounter Summary ---
Author Organization [employer] Address [address] [place] [address] Care Team Providers Care Rhia Name Role Phone Rosina Medina [employer] OPERATOR Primary Care Provider Reason for Visit * Reason Onset Date Comments Nurse Triage 05/25/2025 Encounter Details Date Type Department Care Team ([facility] st Contact Info) Description 05/25/2025 Telephone [facility] MEDICINE [address] [place], [place] [phone] Rosina Medina NP [address] [place] [address] Nurse Triage Social History Tobacco Use Types [...] Reason: Trouble drinking Please contact pt at [phone] documented in this encounter Plan of Treatment Upcoming Encounters Date Type Department Care Team (Late st Contact Info) Description 07/06/2025 2:30 PM EST Office Visit [facility] [address] [place] [address] Rosina Medina NP [address] [place] [address] 09/18/2025 11:00 AM EST Office Visit [facility] OPTOMETRY [address] [place] [address] Jasmine Sierra, OD [address] [place] [address] documented as of this encounter Visit Diagnoses Not on filedocumented in this encounter Additional Health Concerns Assessment Noted Time PHQ-9 Depression Total Score: 0 11/13/19 11:54 AM EDT documented as of this encounter Care Teams Rhia Relationship Specialty Start Date End Date Rosina Medina NP [address] [place], [place] [phone] PCP - General Family Medicine 08/21/23 documented as of this encounter
== END 2025-06-24 13:25 | disposition home or self-care (01) ==
LOC: HO.PMC 13:07
PROVIDERS: PCP Nurse Practitioner Family; Visit Provider Anesthesiology
DX: M96.1 Postlaminectomy syndrome, not elsewhere classified (principal); M46.1 Sacroiliitis, not elsewhere classified; M53.3 Sacrococcygeal disorders, not elsewhere classified; G89.4 Chronic pain syndrome; F11.90 Opioid use, unspecified, uncomplicated; F41.1 Generalized anxiety disorder; F11.20 Opioid dependence, uncomplicated; F33.1 Major depressive disorder, recurrent, moderate; M54.9 Dorsalgia, unspecified
CPT/HCPCS: 99213

== ENCOUNTER → 2025-06-24 13:06 | Outpatient (BNVA) | payer OTHER, SELFPAY | PROVIDERS: PCP Nurse Practitioner Family; Visit Provider Anesthesiology | DX: M96.1 Postlaminectomy syndrome, not elsewhere classified (principal); M46.1 Sacroiliitis, not elsewhere classified; M53.3 Sacrococcygeal disorders, not elsewhere classified; G89.4 Chronic pain syndrome; F41.1 Generalized anxiety disorder; F11.20 Opioid dependence, uncomplicated; F33.1 Major depressive disorder, recurrent, moderate | CPT/HCPCS: 99212 ==